=== PATIENT | male | born 2000 | race Caucasian/White ===

== ENCOUNTER 2018-12-24 06:53 | Inpatient (IN) | payer MEDICAID, OTHER ==
[2018-12-24] VITALS (9 sets, daily range): BP systolic 115–128; BP diastolic 60–72; PULSE 11–126; RESP 20–27; Ht 121.9 cm; Wt 46.8 kg
[~2018-12-24] VITALS: Ht 121.9 cm; Wt 46.8 kg
[2018-12-24] MEDS ORDERED: SODIUM CHLORIDE 0.9% 500 ML BAG IV* STA (07:04)
[2018-12-24] MEDS ORDERED: ACETAMINOPHEN 325 MG SUPP PR STA (07:04)
[2018-12-24] MEDS ORDERED: BICS G-TUBE (08:51)
[2018-12-24] MEDS ORDERED: BACL10TA G-TUBE (08:51)
[2018-12-24] MEDS ORDERED: MULTI G-TUBE (08:51)
[2018-12-24] MEDS ORDERED: IPRA3AMP29 INHALATION ×2 (08:51)
[2018-12-24] MEDS ORDERED: ACET160O41 PO (08:51)
[2018-12-24] MEDS ORDERED: METO-448 G-TUBE (08:51)
[2018-12-24] MEDS ORDERED: MAGN400O19 PO (08:51)
[2018-12-24] MEDS ORDERED: OXYC5SOL G-TUBE (08:51)
[2018-12-24] MEDS ORDERED: SULF20OR7 G-TUBE (08:51)
[2018-12-24] MEDS ORDERED: CALC200T3 G-TUBE (08:51)
[2018-12-24] MEDS ORDERED: ONDA4TAB13 PO (08:51)
[2018-12-24] MEDS ORDERED: TOPI25CA2 G-TUBE (08:51)
[2018-12-24] MEDS ORDERED: LANT3I SC (08:54)
[2018-12-24] MEDS ORDERED: MONT10TA21 G-TUBE (08:54)
[2018-12-24] MEDS ORDERED: POLY17PO6 G-TUBE (08:54)
[2018-12-24] MEDS ORDERED: [UNRECOGNIZED DRUG - CODE] G-TUBE (08:54)
[2018-12-24] MEDS ORDERED: LEVE500S8 G-TUBE (08:54)
[2018-12-24] MEDS ORDERED: LEVA0.3112 INHALATION (08:56)
[2018-12-24] MEDS ORDERED: SIME40DR55 PO (08:56)
[2018-12-24] MEDS ORDERED: SPIR25TA G-TUBE (08:56)
[2018-12-24] MEDS ORDERED: FURO40SO4 G-TUBE (08:56)
[2018-12-24] MEDS ORDERED: METF-849 PO (08:56)
[2018-12-24] MEDS ORDERED: CEFEPIME 2GM/50 ML (PMX) 50 ML IVPB STA (09:13)
[2018-12-24] MEDS ORDERED: SODIUM CHLORIDE 0.9% 1L BAG IV* STA (09:13)
[2018-12-24] MEDS ORDERED: VANCOMYCIN 1 GM (PMX) 250 ML IVPB ONE (09:30)
--- NOTE | 2018-12-24 11:24 | ERD ---
ER Documentation Chief Complaint Chief Complaint PER EMS, TACHYCARDIA, VENT DEPENDENT HPI This is a vent dependence 18-year-old male who with a history of cerebral palsy who was sent from nursing care facility because of tachycardia. There is no other symptoms reported whatsoever. Patient is unable to talk as he is not responsive at baseline and on a ventilator ROS All systems reviewed and are negative except as per history of present illness. Medications Home Meds Reported Medications Metformin* (Glucophage*) 500 Mg Tab, 500 MG PO AC BREAKFAST, #60 TAB 12/24/18 Levalbuterol* (Xopenex*) 0.31 Mg/3 Ml Nebu, 0.31 MG INHALATION Q6H for WHEEZING AND SOB, EA 12/24/18 Simethicone* (Simethicone* Drop) 40 Mg/0.6 Ml Drops.susp, 80 MG PO TID PRN for DISTENSION/GAS/BLOATING, EACH 12/24/18 Furosemide* (Lasix* Liq) 40 Mg/4 Ml Solution, 15 MG G-TUBE BID, #30 ML 12/24/18 Spironolactone* (Aldactone*) 25 Mg Tablet, 25 MG G-TUBE BID, #60 TAB 12/24/18 Polyethylene Glycol* (Miralax*) 17 Gm Powd.pack, 8.5 GM G-TUBE DAILY, #30 PACKET 12/24/18 Insulin Glargine* (Lantus*) 100 Unit/Ml Soln, 20 UNIT SC DAILY, #1 VIAL 12/24/18 Levetiracetam* (Keppra*) 500 Mg/5 Ml Solution, 750 MG G-TUBE BID, BOTTLE 12/24/18 Erythromycin Ethylsuccinate (E.E.S. 200) 200 Mg/5 Ml Susp.recon, 135 MG G-TUBE Q6, #1 BOTTLE 12/24/18 Montelukast Sodium* (Singulair*) 10 Mg Tablet, 10 MG G-TUBE QHS, #30 TAB 12/24/18 Sulfamethoxazole/Trimethoprim (Sulfatrim 800-160 mg/20 ml Renate) 800-160 mg/20 mL Susp, 5 ML G-TUBE BID, #1 BOTTLE 12/24/18 Acetaminophen* (Acetaminophen* Susp) 160 Mg/5 Ml Oral.susp, 640 MG PO Q4H PRN for PAIN OR TEMP ABOVE 38C, ML 12/24/18 Baclofen* (Baclofen*) 10 Mg Tablet, 10 MG G-TUBE Q8 PRN for MUSCLE SPASMS, TAB 12/24/18 Citric Acid/Sodium Citrate* (Bicitra* (PEDIATRIC)) 1 Meq/Ml Soln, 30 MEQ G-TUBE DAILY for 30 Days, BOTTLE 12/24/18 Oxycodone Hcl* (Oxycodone Hcl* Liq) 5 Mg/5 Ml Solution, 2.5 MG G-TUBE TID, ML 12/24/18 Multivitamins* (Theragran*) 1 Tab Tab, 1 TAB G-TUBE DAILY, TAB 12/24/18 Calcium Carbonate (Tums) 200MG Calcium Chew, 250 MG G-TUBE BID, TAB.CHEW 12/24/18 Magnesium Hydroxide* (Milk Of Magnesia*) 400 Mg/5 Ml Oral.susp, 15 ML PO DAILY, ML 12/24/18 Topiramate* (Topiramate*) 25 Mg Cap.sprink, 50 MG G-TUBE BID, CAP 12/24/18 Metoprolol Tartrate* (Lopressor*) 25 Mg Tab, 25 MG G-TUBE BID, #60 TAB 12/24/18 Ondansetron Hcl* (Zofran*) 4 Mg Tab, 4 MG PO Q6H PRN for NAUSEA AND OR VOMITING, TAB 12/24/18 Ipratropium-Albuterol (Ipratropium-Albuterol) 0.5-3 Mg/3 Ml Ampul.neb, 3 ML INHALATION Q2H PRN for SHORTNESS OF BREATH, #30 VIAL 12/24/18 Ipratropium-Albuterol (Ipratropium-Albuterol) 0.5-3 Mg/3 Ml Ampul.neb, 3 ML INHALATION Q6, #30 VIAL 12/24/18 PMhx/Soc History of Surgery: Yes (TRACH) Hx Neurological Disorder: Yes (CEREBRAL PALSY) Hx Respiratory Disorders: Yes (RESP FAILURE) Hx Alcohol Use: No Hx Substance Use: No Hx Tobacco Use: No Smoking Status: Never smoker FmHx Family History: No coronary disease Physical Exam Vitals Vital Signs Date Temp Pulse Resp B/P (MAP) Pulse Ox O2 O2 Flow FiO2 Time Delivery Rate 12/24/18 137 20 147/98 100 [place] 09:27 (114) l Ventilato r 12/24/18 101.5 07:50 12/24/18 142 26 100 35 07:28 12/24/18 101.5 160 20 131/78 100 07:05 (95) Physical Exam Const: Well-developed, well-nourished, cerebral palsy appearance Head: Atraumatic, normocephalic Eyes: Normal Conjunctiva, PERRLA,normal sclera, no nystagmus ENT: Normal External Ears, Nose and Mouth, moist mucus membranes. Neck: Full range of motion, passive. No meningismus, no lymphadenopathy. Resp: Diffuse rhonchi and rales bilaterally Cardio: Tachycardia, no murmurs, S1 S2 present] Abd: Soft, non tender x 4, non distended. Normal bowel sounds, no guarding or rebound, no pulsitile abdominal masses or bruits Skin: No petechiae or rashes, no ecchymosis , no maculopapular rash Back: Normal inspection] Ext: No cyanosis, or edema, , small information consistent with cerebral palsy, neurovascularly intact x 4 Neur: [Awake and alert, sensation intact otherwise limited Psych: Unable to obtain Result Diagram: 12/24/1872912/24/18 0730 Results 24 hrs Laboratory Tests Test 12/24/18 07:25 12/24/18 07:30 12/24/18 08:00 12/24/18 09:01 Urine Color YELLOW Urine Clarity CLOUDY Urine pH 8.0 Urine Specific 1.027 [place] Urine Ketones NEGATIVE mg/dL Urine Nitrite NEGATIVE mg/dL Urine Bilirubin NEGATIVE mg/dL Urine NEGATIVE mg/dL Urobilinogen Urine Leukocyte TRACE Katie/ul Esterase Urine 111 /HPF Microscopic RBC Urine 93 /HPF Microscopic WBC Urine Calcium FEW /HPF Oxalate Crystals Urine Bacteria FEW /HPF Urine Mucus MODERATE /HPF Urine NEGATIVE mg/dL Hemoglobin Urine Glucose NEGATIVE mg/dL Urine Total 2+ mg/dl Protein White Blood 15.5 10^3/ul Count Red Blood Count 3.55 10^6/ul Hemoglobin 10.1 g/dl Hematocrit 33.4 % Mean 94.1 fl Corpuscular Volume Mean 28.5 pg Corpuscular Hemoglobin Mean 30.2 g/dl Corpuscular Hemoglobin Conc ent Red Cell 14.4 % Distribution Width Platelet Count 644 10^3/UL Mean Platelet 10.6 fl Volume Immature 0.800 % Granulocytes % Neutrophils % 70.5 % Lymphocytes % 14.7 % Monocytes % 6.5 % Eosinophils % 6.9 % Basophils % 0.6 % Nucleated Red 0.0 /100WBC Blood Cells % Immature 0.130 10^3/ul Granulocytes # Neutrophils # 10.9 10^3/ul Lymphocytes # 2.3 10^3/ul Monocytes # 1.0 10^3/ul Eosinophils # 1.1 10^3/ul Basophils # 0.1 10^3/ul Nucleated Red 0.0 10^3/ul Blood Cells # Sodium Level 148 mmol/L Potassium Level 4.6 mmol/L Chloride Level 105 mmol/L Carbon Dioxide 27 mmol/L Level Anion Gap 16 Blood Urea 18 mg/dl Nitrogen Creatinine 0.21 mg/dl Est Glomerular > 60 mL/min Filtrat Rate mL/min Glucose Level 173 mg/dl Lactic Acid 2.4 mmol/L 2.4 mmol/L Level Calcium Level 10.5 mg/dl Total Bilirubin 0.3 mg/dl Direct 0.00 mg/dl Bilirubin Indirect 0.3 mg/dl Bilirubin Aspartate Amino 84 IU/L Transf (AST/SGO T) Alanine 55 IU/L Aminotransferas e (ALT/SGPT) Alkaline 163 IU/L Phosphatase Total Protein 8.6 g/dl Albumin 4.6 g/dl Globulin 4.00 g/dl Albumin/Globuli 1.15 n Ratio Blood Gas Blood arterial Specimen Source Arterial Blood 12/24/2018 8:00: Date Drawn 18 AM Arterial Blood 7.391 pH (Temp corrected ) Arterial Blood 45.1 mmhg pCO2 (Temp correct) Arterial Blood 70.6 mmHG pO2 (Temp corrected ) Arterial Blood 26.7 mmol/L HCO3 Arterial Blood 1.4 mmol/L Base Excess Arterial Blood 93.6 mmHG Oxygen Saturati on Ron Test ACCEPTAB Arterial Blood Right Radial Gas Puncture Site Arterial 0.6 % Blood Carboxyhe moglobin Arterial Blood 0.3 % Methemoglobin Blood Gas A-a 126.5 mmHg O2 Differential Oxyhemoglobin 92.8 % Percent Blood Gas 37.0 C Temperature Blood Gas 26.0 Respiration Rate Blood Gas 26 Actual Respiration Rat e Blood Gas VENT - PC Modality FiO2 35.0 % Blood Gas Low 5.0 cmH2O PEEP Setting Blood Gas TM Notified Whom Blood Gas 12/24/2018 8:10: Notified Time 01 AM Current Medications Medications Dose Sig/Hamida Start Time Status Last (Trade) Ordered Route PRN Stop Time Admin Dose Reason Admin Sodium 1,000 ml ONCE STAT 12/24/18 DC 12/24/18 Chloride IV* 07:04 07:51 (NS) 12/24/18 07:07 325 mg ONCE STAT 12/24/18 DC 12/24/18 Acetaminophen NE 07:04 07:50 (Tylenol 12/24/18 07:07 Supp) Sodium 1,500 ml BOLUS OVER 2 12/24/18 DC 12/24/18 Chloride HOURS STAT 09:13 09:24 (NS) IV* 12/24/18 09:15 Cefepime HCl 50 ml @ ONCE STAT 12/24/18 DC 12/24/18 100 mls/hr IVPB 09:13 09:24 12/24/18 09:42 Vancomycin 250 ml @ ONCE ONCE 12/24/18 12/24/18 HCl 125 mls/hr IVPB 09:30 09:52 12/24/18 11:29 Lidocaine 5 ml ONCE ONCE 12/24/18 (Xylocaine SC 11:30 1% (Mpf)) 12/24/18 11:31 Procedures/MDM Ordering MD: ZAID HENRY DO Location: E/R Room/Bed: PROCEDURE: Single view chest. CLINICAL INDICATION: Fever TECHNIQUE: Single view of the chest was obtained COMPARISON: None FINDINGS: Tracheostomy tube is positioned at the midline thoracic inlet. Lung volumes are diminished. Mild bronchial wall cuffing throughout the right lung. Airspace consolidation in the left lung base with associated pleural effusion. There is associated hazy air space opacity in the left upper lung. Cardiac silhouette is enlarged. IMPRESSION: 1. Left basilar air space consolidation and probable pleural effusion compatible with aspiration or pneumonia. 2. Enlarged cardiac silhouette. Mild bronchial wall thickening consistent with trace edema or airways inflammation. RPTAT: [facility] Physician Jace Date Time Electronically viewed and signed by Physician Jace on 12/24/2018 07:50 xB/ CC: MARGARETH HENRYSummer Car DO [id number] EKG: Rate/Rhythm: Sinus tachycardia heart rate 151 QRS, ST, QT: NORMAL NE, QRS, QT] Impression: Sinus tachycardia Admit MDM: Patient's infectious symptoms have not stabilized and the patient is at risk of rapid decompensation. The patient will be admitted for careful hydration, antibiotic therapy, and infectious source control. Severe Sepsis criteria: Infectious source: Pneumonia, urine End organ damage indicated by: Elevated lactate Lactate > 2.0 mmol/L Hypotension (SBP < 90 or >40 mmHG drop or MAP < 65) Acute Resp Failure (sat < 92% w/o oxygen) Biologist Aide > 2.0 INR > 1.5 Plt < 100 Bili > 2 Sepsis Management: Time of recognition of severe sepsis: The first lactate was reported at 2.4, the lab called me and told me that the specimen was hemolyzed and I needed to order a repeat. Repeat lactic acid is 2.4 again. Time of sepsis is at the time this was reported/second lactate Within 3 hours of recognition: Blood cultures x 2 before broad-spectrum antibiotics: []Yes 30 ml/kg NS bolus []Completed Initial lactate 2.4 Repeat lactate pending Septic Shock Assessment: Any lactic acid > 4.0 []No Persistent hypotension (SBP < 90 or 40 mmHg drop, MAP < 65) despite 30 mL/kg IV fluid bolus []No Persistent Hypotension Treatment: Comfort care []No Hypotension caused by: pt. baseline, med-induced, erroneous value, condition other than infection []No Refusal by patient/decision maker for: blood draw, IVF, Antibiotics, Pressors []No Central line PICC line has been ordered, patient has 2 peripheral lines Vasopressor started []Norepinehrine I considered further perfusion assessment with CVP measurement, SCVO2, bedside ultrasound volume assessment, passive leg raise, trial of further fluid bolus and proceeded with []. Accepting Care Team Current data and ongoing care discussed. Time: [] Admitting Physician: Panel Glue Spreader(s): Outstanding Data: []None Critical Care Time: 35 minutes Treatments/Evaluations: Close monitoring and treatment of unstable vital signs, cardiorespiratory, and neurologic status, while maintaining tight balance of fluid, respiratory, and cardiac interventions. This includes the administration of emergency fluid management while maintaining close respiratory support as well as the provision of immediate and broad-spectrum antibiotic therapy, while performing a simultaneous assessment for possible sources in order to direct targeted therapy. This time includes discussing the case with the patient and t he patient's family. This time also includes the consideration for invasive and chemical support to prevent cardiopulmonary collapse. This time does not include all procedures stated elsewhere in this record. This time also includes reviewing old records, labs and radiological studies. This time includes examining and re-examining the patient. Additionally, this time also includes arranging care with admitting and consulting physicians. Departure Diagnosis: Primary Impression: Sepsis Sepsis type: sepsis due to unspecified organism Qualified Codes: A41.9 - Sepsis, unspecified organism Additional Impressions: Pneumonia Pneumonia type: due to unspecified organism Laterality: left Lung location: lower lobe of lung Qualified Codes: J18.1 - Lobar pneumonia, unspecified organism Urinary tract infection Urinary tract infection type: site unspecified Hematuria presence: without hematuria Qualified Codes: N39.0 - Urinary tract infection, site not specified Condition: Stable ZAID HENRY DO Dec 24, 2018 11:24
[2018-12-24] MEDS ORDERED: LIDOCAINE 1% (MPF) 5 ML VIAL SC ONE (11:30)
[2018-12-24] MEDS ORDERED: SOD CHLORIDE 0.9% 1,000 ML IV SCH (11:32)
[2018-12-24] MEDS ORDERED: ACETAMINOPHEN 325 MG TAB PO PRN (12:00)
[2018-12-24] MEDS ORDERED: ONDANSETRON 4 MG INJ IV PRN ×2 (12:00→14:30)
[2018-12-24] MEDS ORDERED: NACL 0.9% 3 ML SYG IV SCH (14:30)
[2018-12-24] MEDS ORDERED: VANCOMYCIN IV PER PHARMACY XX SCH (15:00)
--- NOTE | 2018-12-24 15:03 | HP ---
Date/Time of Note Date/Time of Note DATE: 12/24/18 TIME: 14:50 Assessment/Plan VTE Prophylaxis Pharmacological prophylaxis: heparin Lines/Catheters IV Catheter Type (from Nrs): Saline Lock Assessment/Plan Assessment/Plan 18 yo man with cerebral palsy, chronic trach and PEG coming in with fevers and tachycardia. #Sepsis - Fever to 101.5, tachy to 160s, WBC 15.5 - Of note, patient appears to have been on amoxicillin, gentamycin, and erythromycin prior to admission. - Per CXR this may be vent-associated pneumonia - Will f/u sputum and blood cultures - Empiric vanco and cefepime #Respiratory failure - Appears to be chronic, possible from complications of cerebral palsy - Pulmonary consult to manage vent. - Resume PEG tube feeds. Dispo: May warrant discussion of code status again, POLST is from 2009. DVT: heparin Result Diagram: 12/24/18 0730 12/24/18 0730 HPI/ROS Admit Date/Time Admit Date/Time 24 December 2018 Hx of Present Illness Damian Govea is a 18 man with cerebral palsy, chronic PEG and trach on vent admitted for fever and tachycardia. History is per charting and transfer documentation; patient is nonverbal. Apparently rescue ambulance was called from [facility] due to tachycardia. He was brought to the [facility] ED. Per documentation, he's been on erythromycin, amoxicillin, and gentamycin at the time of transfer. There is also a POLST in the chart from 2009 signed by his father Damian Govea Sr ([phone]) keeping the patient full code. In the ED he was febrile to 101.5, tachy to 160s, BP 131/78, breathing comfortably on vent at 35% FiO2. CXR showed possible L basilar consolidation with possible effusion. ROS Subjective hx not possible: pt non-verbal PMH/Family/Social Past Medical History Cerebral palsy Medications Current Medications Sodium Chloride 1,000 ml @ 80 mls/hr [id number] IV ; Start 12/24/18 at 11:32; Stop 12/25/18 at 00:01 Ondansetron HCl (Zofran Inj) 4 mg ER BRIDGE PRN IV NAUSEA/VOMITING; Start 12/24/18 at 12:00; Stop 12/25/18 at 11:59 Acetaminophen (Tylenol Tab) 650 mg ER BRIDGE PRN PO .MILD PAIN 1-3 OR TEMP; Start 12/24/18 at 12:00; Stop 12/25/18 at 11:59 IV Flush (NS 3 ml) 3 ml PER PROTOCOL IV ; Start 12/24/18 at 14:30; Status UNV Ondansetron HCl (Zofran Inj) 4 mg Q6H PRN IV NAUSEA/VOMITING; Start 12/24/18 at 14:30; Status UNV Heparin Sodium (Porcine) (Heparin (5000 Units/1ml)) 5,000 unit Q12 SC ; Start 12/24/18 at 21:00; Status UNV Cefepime HCl 50 ml @ 100 mls/hr Q12 IVPB ; Start 12/24/18 at 21:00; Status UNV Vancomycin HCl (Vanco Iv Per Pharmacy) VANCOMYCIN PER PHARMACY PER PROTOCOL XX ; Start 12/24/18 at 15:00; Status UNV Coded Allergies: budesonide (Verified Allergy, Unknown, 12/24/18) [facility] transfer sheet list allergies tobramycin (Verified Allergy, Unknown, 12/24/18) transfer list from [facility] pt has allergy to med Past Surgical History Trach PEG Social History Smoking Status: Never smoker Exam/Review of Systems Vital Signs Vitals Vital Signs Date Temp Pulse Resp B/P (MAP) Pulse Ox O2 O2 Flow FiO2 Time Delivery Rate 12/24/18 98.2 130 27 133/88 100 Mechanical 13:21 (103) Ventilator 12/24/18 35 11:15 Exam Exam Gen: Dysmorphic man lying on gurney, trached on vent. Eyes: Open spontaneously, eye movements without tracking. Pupils nonreactive. Dysconjugate gaze. No icterus. Head: Large and spherical, atraumatic HEENT: ET tube in place, crusted exudate on lips. Neck: No lymphadenopathy, supple. Card: Distant heart sounds, tachy, no murmurs appreciated Chest: Wide, barrel-shaped. Pulm: Mechanical breath sounds throughout. Abd: G tube in place, clean and intact. Well healed exp lap scar. Soft, nondistended. Ext: Arms and legs atrophic. No edema. Skin: warm, dry, well perfused. KIAN BARBOZA MD Dec 24, 2018 15:02
[2018-12-24] MEDS ORDERED: LEVALBUTEROL (NEB) 0.31 MG/3 ML AMP NEB PRN (15:30)
[2018-12-24] MEDS ORDERED: ACETAMINOPHEN 160 MG/5ML CUP PO PRN (15:30)
[2018-12-24] MEDS ORDERED: BACLOFEN 10 MG TAB GTB PRN (15:30)
[2018-12-24] MEDS ORDERED: GLUCAGON 1 MG INJ IM PRN (16:00)
[2018-12-24] MEDS ORDERED: GLUCOSE GEL 15 GRAM TUBE PO PRN ×2 (16:00)
[2018-12-24] MEDS ORDERED: DEXTROSE 50% 50 ML SYRINGE IV PRN ×2 (16:00)
[2018-12-24] MEDS ORDERED: GLUCOSE GEL 15 GRAM TUBE BUCCAL PRN (16:00)
[2018-12-24] MEDS ORDERED: GENTAMICIN IV PER PHARMACY XX SCH (17:00)
[2018-12-24] MEDS: INSULIN ASPART [NOVOLOG] 3 ML PEN SC SCH ×2 (18:00→20:27)
[2018-12-24] MEDS: VANCOMYCIN 750 MG (PMX) 250 ML IVPB SCH (18:52)
[2018-12-24] MEDS: SPIRONOLACTONE 25 MG TAB GTB SCH (19:39)
[2018-12-24] MEDS: MONTELUKAST 10 MG TAB GTB SCH (20:03)
[2018-12-24] MEDS: LEVETIRACETAM (100 MG/ML) 5ML CUP GTB SCH (20:03)
[2018-12-24] MEDS: METOPROLOL 25 MG TAB GTB SCH (20:03)
[2018-12-24] MEDS: TOPIRAMATE SPRINKLE 25 MG CAP GTB SCH (20:03)
[2018-12-24] MEDS: HEPARIN 5,000 UNIT/1 ML VIAL SC SCH (20:25)
[2018-12-24] MEDS: GENTAMICIN 80 MG/NS (PMX) 50 ML IVPB SCH (20:27)
[2018-12-24] MEDS ORDERED: TRIMETHOPRIM/SULFAMETHOX (PO SYG) GTB SCH (21:00)
[2018-12-24] MEDS ORDERED: CEFEPIME 1GM/50 ML (PMX) 50 ML IVPB SCH (21:00)
[2018-12-25] VITALS (22 sets, daily range): BP systolic 102–117; BP diastolic 56–73; PULSE 86–122; RESP 20–26
[2018-12-25] MEDS: ACCU-CHEK XX SCH (01:01)
[2018-12-25] MEDS: VANCOMYCIN 750 MG (PMX) 250 ML IVPB SCH ×3 (01:11→17:20)
[2018-12-25] MEDS: SPIRONOLACTONE 25 MG TAB GTB SCH ×2 (05:09→17:07)
[2018-12-25] MEDS: GENTAMICIN 80 MG/NS (PMX) 50 ML IVPB SCH ×2 (05:14→18:00)
[2018-12-25] MEDS: INSULIN ASPART [NOVOLOG] 3 ML PEN SC SCH ×4 (08:00→21:00)
[2018-12-25] MEDS: MAGNESIUM HYDROXIDE 30ML CUP PO SCH (09:00)
[2018-12-25] MEDS: METOPROLOL 25 MG TAB GTB SCH ×2 (09:00→21:20)
[2018-12-25] MEDS: CITRIC ACID/SODIUM CITRATE 15 ML CUP GTB SCH (09:00)
[2018-12-25] MEDS: LEVETIRACETAM (100 MG/ML) 5ML CUP GTB SCH ×2 (09:00→21:19)
[2018-12-25] MEDS: POLYETHYLENE GLYCOL 17 GM PACKET GTB SCH (09:00)
[2018-12-25] MEDS: TOPIRAMATE SPRINKLE 25 MG CAP GTB SCH ×2 (09:00→21:19)
[2018-12-25] MEDS ORDERED: CITRIC ACID/NA CIT (1 MEQ/ML POSYG) GTB SCH (09:00)
[2018-12-25] MEDS ORDERED: INFLUENZA VIRUS VACCINE 0.5 ML (DISPENSING) IM* ONE (09:00)
[2018-12-25] MEDS: SOD CHLORIDE 0.45% 1,000 ML IV SCH (09:53)
[2018-12-25] MEDS: INSULIN GLARGINE [LANTus] (100 UNITS/ML) SYG SC SCH (09:59)
[2018-12-25] MEDS: HEPARIN 5,000 UNIT/1 ML VIAL SC SCH ×2 (10:00→21:24)
--- NOTE | 2018-12-25 16:46 | CONS ---
Assessment/Plan Assessment/Plan Assessment/Plan (Daily) IMP: 1. Sepsis--2/2 UTI +/- HCAP. 2. Vent Dependent Resp Failure 3. Cerebral Palsy RECS: 1. IVFs 2. Hadley-culture--follow up and de-escalate abx 3. Broad spectrum abx 4. Vent support 5. Am labs/CXR/ABG Consultation Date/Type/Reason Admit Date/Time 24 December 2018 Date of Consultation: Dec 25, 2018 Type of Consult Pulm Date/Time of Note DATE: 12/25/18 TIME: 16:40 Hx of Present Illness Briefly, this is a 18-year-old man with cerebral palsy, chronic PEG, and trach on vent, admitted from SNF with fevers and tachycardia. Subjective hx not possible: pt non-verbal Past Medical History as per [facility] Home Meds Reported Medications Metformin* (Glucophage*) 500 Mg Tab, 500 MG PO AC BREAKFAST, #60 TAB 12/24/18 Levalbuterol* (Xopenex*) 0.31 Mg/3 Ml Nebu, 0.31 MG INHALATION Q6H for WHEEZING AND SOB, EA 12/24/18 Simethicone* (Simethicone* Drop) 40 Mg/0.6 Ml Drops.susp, 80 MG PO TID PRN for DISTENSION/GAS/BLOATING, EACH 12/24/18 Furosemide* (Lasix* Liq) 40 Mg/4 Ml Solution, 15 MG G-TUBE BID, #30 ML 12/24/18 Spironolactone* (Aldactone*) 25 Mg Tablet, 25 MG G-TUBE BID, #60 TAB 12/24/18 Polyethylene Glycol* (Miralax*) 17 Gm Powd.pack, 8.5 GM G-TUBE DAILY, #30 PACKET 12/24/18 Insulin Glargine* (Lantus*) 100 Unit/Ml Soln, 20 UNIT SC DAILY, #1 VIAL 12/24/18 Levetiracetam* (Keppra*) 500 Mg/5 Ml Solution, 750 MG G-TUBE BID, BOTTLE 12/24/18 Erythromycin Ethylsuccinate (E.E.S. 200) 200 Mg/5 Ml Susp.recon, 135 MG G-TUBE Q6, #1 BOTTLE 12/24/18 Montelukast Sodium* (Singulair*) 10 Mg Tablet, 10 MG G-TUBE QHS, #30 TAB 12/24/18 Sulfamethoxazole/Trimethoprim (Sulfatrim 800-160 mg/20 ml Renate) 800-160 mg/20 mL Susp, 5 ML G-TUBE BID, #1 BOTTLE 12/24/18 Acetaminophen* (Acetaminophen* Susp) 160 Mg/5 Ml Oral.susp, 640 MG PO Q4H PRN for PAIN OR TEMP ABOVE 38C, ML 12/24/18 Baclofen* (Baclofen*) 10 Mg Tablet, 10 MG G-TUBE Q8 PRN for MUSCLE SPASMS, TAB 12/24/18 Citric Acid/Sodium Citrate* (Bicitra* (PEDIATRIC)) 1 Meq/Ml Soln, 30 MEQ G-TUBE DAILY for 30 Days, BOTTLE 12/24/18 Oxycodone Hcl* (Oxycodone Hcl* Liq) 5 Mg/5 Ml Solution, 2.5 MG G-TUBE TID, ML 12/24/18 Multivitamins* (Theragran*) 1 Tab Tab, 1 TAB G-TUBE DAILY, TAB 12/24/18 Calcium Carbonate (Tums) 200MG Calcium Chew, 250 MG G-TUBE BID, TAB.CHEW 12/24/18 Magnesium Hydroxide* (Milk Of Magnesia*) 400 Mg/5 Ml Oral.susp, 15 ML PO DAILY, ML 12/24/18 Topiramate* (Topiramate*) 25 Mg Cap.sprink, 50 MG G-TUBE BID, CAP 12/24/18 Metoprolol Tartrate* (Lopressor*) 25 Mg Tab, 25 MG G-TUBE BID, #60 TAB 12/24/18 Ondansetron Hcl* (Zofran*) 4 Mg Tab, 4 MG PO Q6H PRN for NAUSEA AND OR VOMITING, TAB 12/24/18 Ipratropium-Albuterol (Ipratropium-Albuterol) 0.5-3 Mg/3 Ml Ampul.neb, 3 ML INHALATION Q2H PRN for SHORTNESS OF BREATH, #30 VIAL 12/24/18 Ipratropium-Albuterol (Ipratropium-Albuterol) 0.5-3 Mg/3 Ml Ampul.neb, 3 ML INHALATION Q6, #30 VIAL 12/24/18 Medications Current Medications IV Flush (NS 3 ml) 3 ml PER PROTOCOL IV ; Start 3/22/19 at 14:30 Ondansetron HCl (Zofran Inj) 4 mg Q6H PRN IV NAUSEA/VOMITING; Start 12/24/18 at 14:30 Heparin Sodium (Porcine) (Heparin (5000 Units/1ml)) 5,000 unit Q12 SC Last administered on 12/25/18at 10:00; Admin Dose 5,000 UNIT; Start 12/24/18 at 21:00 Vancomycin HCl (Vanco Iv Per Pharmacy) VANCOMYCIN PER PHARMACY PER PROTOCOL XX ; Start 12/24/18 at 15:00 Acetaminophen (Tylenol Liquid (Ped)) 640 mg Q4H PRN PO MILD PAIN(1-3) OR TEMP>38C; Start 12/24/18 at 15:30 Baclofen (Lioresal) 10 mg Q8H PRN GTB MUSCLE SPASMS; Start 12/24/18 at 15:30 Insulin Glargine (Lantus) 20 units DAILY SC Last administered on 12/25/18at 09:59; Admin Dose 20 UNITS; Start 12/25/18 at 09:00 Levalbuterol (Xopenex Neb) 0.31 mg Q6H RESP THERAPY PRN NEB wheezing; Start 12/24/18 at 15:30 Levetiracetam (Keppra Liquid) 750 mg BID GTB ; Start 12/24/18 at 21:00 Magnesium Hydroxide (Milk Of Mag) 15 ml DAILY PO ; Start 12/25/18 at 09:00 Metoprolol Tartrate (Lopressor) 25 mg BID GTB ; Start 12/24/18 at 21:00 Montelukast Sodium (Singulair) 10 mg QHS GTB ; Start 12/24/18 at 21:00 Polyethylene Glycol (Miralax) 8.5 gm DAILY GTB ; Start 12/25/18 at 09:00 Simethicone (Mylicon Oral Drop) 80 mg TID PRN PO DISTENSION/GAS/BLOATING; Start 12/24/18 at 15:30 Spironolactone (Aldactone) 25 mg BID DIURETICS GTB ; Start 12/24/18 at 18:00 Topiramate (Topamax Sprinkle) 50 mg BID GTB ; Start 12/24/18 at 21:00 Diagnostic Test (Pha) (Accu-Chek) XX ; Start 12/25/18 at 02:00 Insulin Aspart (Novolog Insulin Pen) NOVOLOG *MODERATE* ALGORITHM WITH MEALS BEDTIME SC ; Start 12/24/18 at 18:00 Miscellaneous Information 1 ea NOTE XX ; Start 12/24/18 at 16:00 Glucose (Glutose) 15 gm Q15M PRN PO DECREASED GLUCOSE; Start 12/24/18 at 16:00 Glucose (Glutose) 22.5 gm Q15M PRN PO DECREASED GLUCOSE; Start 12/24/18 at 16:00 Dextrose (D50w Syringe) 25 ml Q15M PRN IV DECREASED GLUCOSE; Start 12/24/18 at 16:00 Dextrose (D50w Syringe) 50 ml Q15M PRN IV DECREASED GLUCOSE; Start 12/24/18 at 16:00 Glucagon (Glucagen) 1 mg Q15M PRN IM DECREASED GLUCOSE; Start 12/24/18 at 16:00 Glucose (Glutose) 15 gm Q15M PRN BUCCAL DECREASED GLUCOSE; Start 12/24/18 at 16:00 Gentamicin Sulfate 50 ml @ 100 mls/hr Q12H IVPB Last administered on 12/25/18at 05:14; Admin Dose 100 MLS/HR; Start 12/24/18 at 18:00 Gentamicin Sulfate (Gentamicin Iv Per Pharmacy) PER PHARMACY DOSING NOTE XX ; Start 12/24/18 at 17:00 Vancomycin/Sodium Chloride 250 ml @ 125 mls/hr Q8H IVPB Last administered on 12/25/18at 11:00; Admin Dose 125 MLS/HR; Start 12/24/18 at 18:00 Citric Acid/ Sodium Citrate (Bicitra) 30 ml DAILY GTB ; Start 12/25/18 at 09:00 Sodium Chloride 1,000 ml @ 75 mls/hr [id number] IV Last administered on 12/25/18at 09:53; Admin Dose 75 MLS/HR; Start 12/25/18 at 09:00 Miscellaneous Information (*Rx Drug Level Order Reminder*) GENT TROUGH @ 1,700 ONCE ONCE XX ; Start 12/25/18 at 17:00; Stop 12/25/18 at 17:01 Miscellaneous Information (*Rx Drug Level Order Reminder*) GENT PEAK @ 1,900 ONCE ONCE XX ; Start 12/25/18 at 19:00; Stop 12/25/18 at 19:01 Allergies: Coded Allergies: budesonide (Verified Allergy, Unknown, 12/24/18) [facility] [place] transfer sheet list allergies tobramycin (Verified Allergy, Unknown, 12/24/18) transfer list from [facility] [place] pt has allergy to med Past Surgical History Trach and PEG Family History Significant Family History: no pertinent family hx Social History Alcohol Use: none Smoking Status: Never smoker Drug Use: none Exam/Review of Systems Exam Vitals Vital Signs Date Temp Pulse Resp B/P (MAP) Pulse Ox O2 O2 Flow FiO2 Time Delivery Rate 12/25/18 93 16:09 12/25/18 98.5 20 117/59 100 Mechanical 16:03 (78) Ventilator 12/25/18 30 15:21 Intake and Output 12/24/18 12/24/18 12/25/18 1515:00 23:00 07:00 IntakeIntake Total 250 ml 300 ml OutputOutput Total 450 ml BalanceBalance 250 ml -150 ml Constitutional: alert, non-verbal Head: normocephalic, atraumatic Eyes: nl conjunctiva, nl lids, nl sclera ENMT: nl external ears & nose, nl lips & teeth, nl nasal mucosa & septum Neck: supple, non-tender, other (trach site clean ) Respiratory: crackles/rales, labored breathing Cardiovascular: nl pulses Gastrointestinal: soft, nl liver, spleen, non-tender Extremities: normal pulses 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 Results Result Diagram: 12/25/18 0744 12/25/18 0551 Results 24hrs Laboratory Tests Test 12/24/18 18:49 12/24/18 20:17 12/25/18 05:51 12/25/18 07:00 Bedside Glucose 101 117 Sodium Level 148 H Potassium Level 3.8 Chloride Level 112 H Carbon Dioxide 23 Level Anion Gap 13 Blood Urea 10 Nitrogen Creatinine 0.17 L Est Glomerular > 60 Filtrat Rate mL/min Glucose Level 120 # Calcium Level 9.2 Phosphorus Level 3.4 Magnesium Level 1.9 Total Bilirubin 0.2 Direct Bilirubin 0.00 Indirect 0.2 Bilirubin Aspartate Amino 78 H Transf (AST/SGOT) Alanine 43 Aminotransferase (ALT/SGPT) Alkaline 99 Phosphatase Total Protein 6.5 # Albumin 3.6 # Globulin 2.90 Albumin/Globulin 1.24 Ratio Thyroid 1.160 Stimulating Hormone (TSH) Blood Gas Blood arterial Specimen Source Arterial Blood 12/25/2018 8:18:5 Date Drawn 8 AM Arterial Blood pH 7.403 (Temp corrected) Arterial Blood 42.9 pCO2 (Temp correct) Arterial Blood 122.1 H pO2 (Temp corrected) Arterial Blood 26.2 H HCO3 Arterial Blood 1.3 Base Excess Arterial Blood 98.1 H Oxygen Saturation Ron Test ACCEPTAB Arterial Blood Right Radial Gas Puncture Site Arterial 0.3 Blood Carboxyhemo globin Arterial Blood 0.6 Methemoglobin Blood Gas A-a O2 41.4 H Differential Oxyhemoglobin 97.2 Percent Blood Gas 37.0 Temperature Blood Gas 26.0 Respiration Rate Blood Gas Actual 26 Respiration Rate Blood Gas VENT - AC Modality FiO2 30.0 Blood Gas 0.80 Inspiratory Time Blood Gas Low 5.0 PEEP Setting Blood Gas 31.0 Inspiratory Pressure Blood Gas DT Notified Whom Blood Gas 12/25/2018 8:38:3 Notified Time 9 AM Test 12/25/18 07:44 12/25/18 08:00 12/25/18 09:21 12/25/18 12:16 White Blood Count 10.5 # Red Blood Count 2.87 L Hemoglobin 8.5 L Hematocrit 27.4 L Mean Corpuscular 95.5 Volume Mean Corpuscular 29.6 Hemoglobin Mean Corpuscular 31.0 L Hemoglobin Concen t Red Cell 14.6 H Distribution Width Platelet Count 523 H Mean Platelet 11.8 H Volume Immature 1.000 H Granulocytes % Neutrophils % Segmented 52 Neutrophils % (Manual) Band Neutrophils 1 % (Manual) Lymphocytes % Lymphocytes % 28 (Manual) Reactive 1 H Lymphocytes % (Manual) Monocytes % Monocytes % 5 (Manual) Eosinophils % Eosinophils % 13 H (Manual) Basophils % Nucleated Red 0.0 Blood Cells % Immature 0.110 H Granulocytes # Neutrophils # Neutrophils # 5.5 (Manual) Band Neutrophils 0.1 # Lymphocytes 2.9 (Manual) Lymphocytes # Reactive 0.1 H Lymphocytes # Monocytes # Monocytes # 0.5 (Manual) Eosinophils # Basophils # Nucleated Red Blood Cells # Platelet Estimate INCREASED Polychromasia 3+ Anisocytosis 2+ Hemoglobin A1c 5.3 Bedside Glucose 122 100 Vancomycin Level 13.6 Trough Medications Medication Current Medications IV Flush (NS 3 ml) 3 ml PER PROTOCOL IV ; Start 12/24/18 at 14:30 Ondansetron HCl (Zofran Inj) 4 mg Q6H PRN IV NAUSEA/VOMITING; Start 12/24/18 at 14:30 Heparin Sodium (Porcine) (Heparin (5000 Units/1ml)) 5,000 unit Q12 SC Last administered on 12/25/18at 10:00; Admin Dose 5,000 UNIT; Start 12/24/18 at 21:00 Vancomycin HCl (Vanco Iv Per Pharmacy) VANCOMYCIN PER PHARMACY PER PROTOCOL XX ; Start 12/24/18 at 15:00 Acetaminophen (Tylenol Liquid (Ped)) 640 mg Q4H PRN PO MILD PAIN(1-3) OR TEMP>38C; Start 12/24/18 at 15:30 Baclofen (Lioresal) 10 mg Q8H PRN GTB MUSCLE SPASMS; Start 12/24/18 at 15:30 Insulin Glargine (Lantus) 20 units DAILY SC Last administered on 12/25/18at 09:59; Admin Dose 20 UNITS; Start 12/25/18 at 09:00 Levalbuterol (Xopenex Neb) 0.31 mg Q6H RESP THERAPY PRN NEB wheezing; Start at 15:30 Levetiracetam (Keppra Liquid) 750 mg BID GTB ; Start 12/24/18 at 21:00 Magnesium Hydroxide (Milk Of Mag) 15 ml DAILY PO ; Start 12/25/18 at 09:00 Metoprolol Tartrate (Lopressor) 25 mg BID GTB ; Start 12/24/18 at 21:00 Montelukast Sodium (Singulair) 10 mg QHS GTB ; Start 12/24/18 at 21:00 Polyethylene Glycol (Miralax) 8.5 gm DAILY GTB ; Start 12/25/18 at 09:00 Simethicone (Mylicon Oral Drop) 80 mg TID PRN PO DISTENSION/GAS/BLOATING; Start 12/24/18 at 15:30 Spironolactone (Aldactone) 25 mg BID DIURETICS GTB ; Start 12/24/18 at 18:00 Topiramate (Topamax Sprinkle) 50 mg BID GTB ; Start 12/24/18 at 21:00 Diagnostic Test (Pha) (Accu-Chek) 1 XX ; Start 12/25/18 at 02:00 Insulin Aspart (Novolog Insulin Pen) NOVOLOG *MODERATE* ALGORITHM WITH MEALS BEDTIME SC ; Start 12/24/18 at 18:00 Miscellaneous Information 1 ea NOTE XX ; Start 12/24/18 at 16:00 Glucose (Glutose) 15 gm Q15M PRN PO DECREASED GLUCOSE; Start 12/24/18 at 16:00 Glucose (Glutose) 22.5 gm Q15M PRN PO DECREASED GLUCOSE; Start 12/24/18 at 16:00 Dextrose (D50w Syringe) 25 ml Q15M PRN IV DECREASED GLUCOSE; Start 12/24/18 at 16:00 Dextrose (D50w Syringe) 50 ml Q15M PRN IV DECREASED GLUCOSE; Start 12/24/18 at 16:00 Glucagon (Glucagen) 1 mg Q15M PRN IM DECREASED GLUCOSE; Start 12/24/18 at 16:00 Glucose (Glutose) 15 gm Q15M PRN BUCCAL DECREASED GLUCOSE; Start 12/24/18 at 16:00 Gentamicin Sulfate 50 ml @ 100 mls/hr Q12H IVPB Last administered on 12/25/18at 05:14; Admin Dose 100 MLS/HR; Start 12/24/18 at 18:00 Gentamicin Sulfate (Gentamicin Iv Per Pharmacy) PER PHARMACY DOSING NOTE XX ; Start 12/24/18 at 17:00 Vancomycin/Sodium Chloride 250 ml @ 125 mls/hr Q8H IVPB Last administered on 12/25/18at 11:00; Admin Dose 125 MLS/HR; Start 12/24/18 at 18:00 Citric Acid/ Sodium Citrate (Bicitra) 30 ml DAILY GTB ; Start 12/25/18 at 09:00 Sodium Chloride 1,000 ml @ 75 mls/hr [id number] IV Last administered on 12/25/18at 09:53; Admin Dose 75 MLS/HR; Start 12/25/18 at 09:00 Miscellaneous Information (*Rx Drug Level Order Reminder*) GENT TROUGH @ 1,700 ONCE ONCE XX ; Start 12/25/18 at 17:00; Stop 12/25/18 at 17:01 Miscellaneous Information (*Rx Drug Level Order Reminder*) GENT PEAK @ 1,900 ONCE ONCE XX ; Start 12/25/18 at 19:00; Stop 12/25/18 at 19:01 RAHEL WIN MD Dec 25, 2018 16:46
[2018-12-25] MEDS ORDERED: ACETAMINOPHEN 650MG/20.3ML CUP PO PRN (17:30)
[2018-12-25] MEDS: MONTELUKAST 10 MG TAB GTB SCH (21:19)
--- NOTE | 2018-12-25 23:57 | CONS ---
Assessment/Plan Assessment/Plan Hospital Course (Demo Recall) - severe sepsis on admission due to UTI and ventilator associated pneumonia - UTI due to Gram negative gurinder - h/o UTI due to E. faecalise at [facility]; was on amoxicillin pPEG (12/20/2018- 12/23/2018) - ventilator associated pneumonia of L base due to Gram negative gurinder - h/o VAP due to acinetobacter vs. colonization of the resp tract by acinetobacter; has been on IV gentamicin, started at [facility] originally (12/22/2018- ) - VDRF - h/o tracheostomy - dysphagia - PEG dependent status - cerebral palsy - epilepsy - DTI of R heel (present at admission) - atrophy of limbs - h/o repair of cleft lip and palate recommendations - pending results: Gram negative rods in cultures of urine and tracheal aspirate, blood culture - continue IV vancomycin (12/24/2018-) and gentamicin (12/22/2018-); will adjust his antibiotics according to the culture results - management d/w Pt's RN [place] Consultation Date/Type/Reason Admit Date/Time 24 December 2018 Date of Consultation: Dec 25, 2018 Type of Consult ID Reason for Consultation severe sepsis Requesting Provider: KIAN BARBOZA MD Date/Time of Note DATE: 12/25/18 TIME: 23:57 Hx of Present Illness This is a 18 yo male with cerebral palsy, who is dependent on the ventilator and tube feed via PEG. He usually resides in an LTAC. His PMHx is significant for ventilator-associated pneumonia and epilepsy. Pt was transferred to ER at [facility] on 12/24/2018 due to tachycardia and fever. According to the notes at [facility], Pt was started on amoxicillin per PEG due to UTI caused by E. faecalis on 12/20/2018 and was started on IV gentamicin due to "acinetobacter in sputum." Upon arrival at ER. Pt was tachycardic, tachypenic and febrile at 101.5. His initial workup was significant for WBC 15.5, lactic acid 2.4, pyuria on urinalysis and CXR showing air space disease/infiltrate at L base. Pt was started on empiric IV vancomycin and continued on IV gentamicin. Today, Pt was afebrile in the afternoon. WBC level improved to 10.5. cultures of his urine and tracheal aspirate are growing Gram negative rods. Pt is non-verbal at baseline and cannot provide his subjective history. Dr. Barboza requested ID consultation on this Pt. Subjective hx not possible: pt non-verbal Past Medical History Medical History: other (cerebral palsy, epilepsy, anemia, VDRF, tube feed, VAP, atrophy of limbs) Home Meds Reported Medications Metformin* (Glucophage*) 500 Mg Tab, 500 MG PO AC BREAKFAST, #60 TAB 12/24/18 Levalbuterol* (Xopenex*) 0.31 Mg/3 Ml Nebu, 0.31 MG INHALATION Q6H for WHEEZING AND SOB, EA 12/24/18 Simethicone* (Simethicone* Drop) 40 Mg/0.6 Ml Drops.susp, 80 MG PO TID PRN for DISTENSION/GAS/BLOATING, EACH 12/24/18 Furosemide* (Lasix* Liq) 40 Mg/4 Ml Solution, 15 MG G-TUBE BID, #30 ML 12/24/18 Spironolactone* (Aldactone*) 25 Mg Tablet, 25 MG G-TUBE BID, #60 TAB 12/24/18 Polyethylene Glycol* (Miralax*) 17 Gm Powd.pack, 8.5 GM G-TUBE DAILY, #30 PACKET 12/24/18 Insulin Glargine* (Lantus*) 100 Unit/Ml Soln, 20 UNIT SC DAILY, #1 VIAL 12/24/18 Levetiracetam* (Keppra*) 500 Mg/5 Ml Solution, 750 MG G-TUBE BID, BOTTLE 12/24/18 Erythromycin Ethylsuccinate (E.E.S. 200) 200 Mg/5 Ml Susp.recon, 135 MG G-TUBE Q6, #1 BOTTLE 12/24/18 Montelukast Sodium* (Singulair*) 10 Mg Tablet, 10 MG G-TUBE QHS, #30 TAB 12/24/18 Sulfamethoxazole/Trimethoprim (Sulfatrim 800-160 mg/20 ml Renate) 800-160 mg/20 mL Susp, 5 ML G-TUBE BID, #1 BOTTLE 12/24/18 Acetaminophen* (Acetaminophen* Susp) 160 Mg/5 Ml Oral.susp, 640 MG PO Q4H PRN for PAIN OR TEMP ABOVE 38C, ML 12/24/18 Baclofen* (Baclofen*) 10 Mg Tablet, 10 MG G-TUBE Q8 PRN for MUSCLE SPASMS, TAB 12/24/18 Citric Acid/Sodium Citrate* (Bicitra* (PEDIATRIC)) 1 Meq/Ml Soln, 30 MEQ G-TUBE DAILY for 30 Days, BOTTLE 12/24/18 Oxycodone Hcl* (Oxycodone Hcl* Liq) 5 Mg/5 Ml Solution, 2.5 MG G-TUBE TID, ML 12/24/18 Multivitamins* (Theragran*) 1 Tab Tab, 1 TAB G-TUBE DAILY, TAB 12/24/18 Calcium Carbonate (Tums) 200MG Calcium Chew, 250 MG G-TUBE BID, TAB.CHEW 12/24/18 Magnesium Hydroxide* (Milk Of Magnesia*) 400 Mg/5 Ml Oral.susp, 15 ML PO DAILY, ML 12/24/18 Topiramate* (Topiramate*) 25 Mg Cap.sprink, 50 MG G-TUBE BID, CAP 12/24/18 Metoprolol Tartrate* (Lopressor*) 25 Mg Tab, 25 MG G-TUBE BID, #60 TAB 12/24/18 Ondansetron Hcl* (Zofran*) 4 Mg Tab, 4 MG PO Q6H PRN for NAUSEA AND OR VOMITING, TAB 12/24/18 Ipratropium-Albuterol (Ipratropium-Albuterol) 0.5-3 Mg/3 Ml Ampul.neb, 3 ML INHALATION Q2H PRN for SHORTNESS OF BREATH, #30 VIAL 12/24/18 Ipratropium-Albuterol (Ipratropium-Albuterol) 0.5-3 Mg/3 Ml Ampul.neb, 3 ML INHALATION Q6, #30 VIAL 12/24/18 Medications Current Medications IV Flush (NS 3 ml) 3 ml PER PROTOCOL IV ; Start 12/24/18 at 14:30 Ondansetron HCl (Zofran Inj) 4 mg Q6H PRN IV NAUSEA/VOMITING; Start 12/24/18 at 14:30 Heparin Sodium (Porcine) (Heparin (5000 Units/1ml)) 5,000 unit Q12 SC Last administered on 12/25/18at 21:24; Admin Dose 5,000 UNIT; Start 12/24/18 at 21:00 Vancomycin HCl (Vanco Iv Per Pharmacy) VANCOMYCIN PER PHARMACY PER PROTOCOL XX ; Start 12/24/18 at 15:00 Baclofen (Lioresal) 10 mg Q8H PRN GTB MUSCLE SPASMS; Start 12/24/18 at 15:30 Insulin Glargine (Lantus) 20 units DAILY SC Last administered on 12/25/18at 09:59; Admin Dose 20 UNITS; Start 12/25/18 at 09:00 Levalbuterol (Xopenex Neb) 0.31 mg Q6H RESP THERAPY PRN NEB wheezing; Start 12/24/18 at 15:30 Levetiracetam (Keppra Liquid) 750 mg BID GTB Last administered on 12/25/18at 21:19; Admin Dose 750 MG; Start 12/24/18 at 21:00 Magnesium Hydroxide (Milk Of Mag) 15 ml DAILY PO ; Start 12/25/18 at 09:00 Metoprolol Tartrate (Lopressor) 25 mg BID GTB Last administered on 12/25/18at 21:20; Admin Dose 25 MG; Start 12/24/18 at 21:00 Montelukast Sodium (Singulair) 10 mg QHS GTB Last administered on 12/25/18at 21:19; Admin Dose 10 MG; Start 12/24/18 at 21:00 Polyethylene Glycol (Miralax) 8.5 gm DAILY GTB ; Start 12/25/18 at 09:00 Simethicone (Mylicon Oral Drop) 80 mg TID PRN PO DISTENSION/GAS/BLOATING; Start 12/24/18 at 15:30 Spironolactone (Aldactone) 25 mg BID DIURETICS GTB ; Start 12/24/18 at 18:00 Topiramate (Topamax Sprinkle) 50 mg BID GTB Last administered on 12/25/18at 21:19; Admin Dose 50 MG; Start 12/24/18 at 21:00 Diagnostic Test (Pha) (Accu-Chek) 1 ea 02 XX ; Start 12/25/18 at 02:00 Insulin Aspart (Novolog Insulin Pen) NOVOLOG *MODERATE* ALGORITHM WITH MEALS BEDTIME SC ; Start 12/24/18 at 18:00 Miscellaneous Information 1 ea NOTE XX ; Start 12/24/18 at 16:00 Glucose (Glutose) 15 gm Q15M PRN PO DECREASED GLUCOSE; Start 12/24/18 at 16:00 Glucose (Glutose) 22.5 gm Q15M PRN PO DECREASED GLUCOSE; Start 12/24/18 at 16:00 Dextrose (D50w Syringe) 25 ml Q15M PRN IV DECREASED GLUCOSE; Start 12/24/18 at 16:00 Dextrose (D50w Syringe) 50 ml Q15M PRN IV DECREASED GLUCOSE; Start 12/24/18 at 16:00 Glucagon (Glucagen) 1 mg Q15M PRN IM DECREASED GLUCOSE; Start 12/24/18 at 16:00 Glucose (Glutose) 15 gm Q15M PRN BUCCAL DECREASED GLUCOSE; Start 12/24/18 at 16:00 Gentamicin Sulfate 50 ml @ 100 mls/hr Q12H IVPB Last administered on 12/25/18at 18:00; Admin Dose 100 MLS/HR; Start 12/24/18 at 18:00 Gentamicin Sulfate (Gentamicin Iv Per Pharmacy) PER PHARMACY DOSING NOTE XX ; Start 12/24/18 at 17:00 Vancomycin/Sodium Chloride 250 ml @ 125 mls/hr Q8H IVPB Last administered on 12/25/18at 17:20; Admin Dose 125 MLS/HR; Start 12/24/18 at 18:00 Citric Acid/ Sodium Citrate (Bicitra) 30 ml DAILY GTB ; Start 12/25/18 at 09:00 Sodium Chloride 1,000 ml @ 75 mls/hr [id number] IV Last administered on 12/25/18at 09:53; Admin Dose 75 MLS/HR; Start 12/25/18 at 09:00 Acetaminophen (Tylenol Liquid) 650 mg Q4H PRN PO MILD PAIN(1-3)OR ELEVATED TEMP; Start 12/25/18 at 17:30 Allergies: Coded Allergies: budesonide (Verified Allergy, Unknown, 12/24/18) [facility] transfer sheet list allergies tobramycin (Verified Allergy, Unknown, 12/24/18) transfer list from [facility] pt has allergy to med Past Surgical History Past Surgical Hx: other (cleft lip repair) Social History Alcohol Use: none Smoking Status: Never smoker Drug Use: none Exam/Review of Systems Exam Vitals Vital Signs Date Temp Pulse Resp B/P (MAP) Pulse Ox O2 O2 Flow FiO2 Time Delivery Rate 12/25/18 106 20:34 12/25/18 98.1 20 105/65 99 Mechanical 20:00 (78) Ventilator 12/25/18 30 15:21 Intake and Output 12/24/18 12/24/18 12/25/18 1515:00 23:00 07:00 IntakeIntake Total 250 ml 300 ml OutputOutput Total 450 ml BalanceBalance 250 ml -150 ml Constitutional: non-verbal, frail Psych: confusion Eyes: nl conjunctiva, nl lids, nl sclera, other (L eye deviated laterally); No icteric ENMT: other (s/p repair of cleft lip and palate) Neck: other (trach) Respiratory: crackles/rales Cardiovascular: regular rate and rhythm, nl pulses Gastrointestinal: soft, non-tender, other (PEG); No distended, No tender Genitourinary - Male: other (FC) Musculoskeletal: other (atrophic) Extremities: No edema Neurological: unresponsive Skin: rash or lesions (DTI of R heel) Results Result Diagram: 12/25/18 0744 12/25/18 0551 Results 24hrs Laboratory Tests Test 12/25/18 05:51 12/25/18 07:00 12/25/18 07:44 12/25/18 08:00 Sodium Level 148 H Potassium Level 3.8 Chloride Level 112 H Carbon Dioxide 23 Level Anion Gap 13 Blood Urea 10 Nitrogen Creatinine 0.17 L Est Glomerular > 60 Filtrat Rate mL/min Glucose Level 120 # Calcium Level 9.2 Phosphorus Level 3.4 Magnesium Level 1.9 Total Bilirubin 0.2 Direct Bilirubin 0.00 Indirect 0.2 Bilirubin Aspartate Amino 78 H Transf (AST/SGOT) Alanine 43 Aminotransferase (ALT/SGPT) Alkaline 99 Phosphatase Total Protein 6.5 # Albumin 3.6 # Globulin 2.90 Albumin/Globulin 1.24 Ratio Thyroid 1.160 Stimulating Hormone (TSH) Blood Gas Blood arterial Specimen Source Arterial Blood 12/25/2018 8:18:5 Date Drawn 8 AM Arterial Blood pH 7.403 (Temp corrected) Arterial Blood 42.9 pCO2 (Temp correct) Arterial Blood 122.1 H pO2 (Temp corrected) Arterial Blood 26.2 H HCO3 Arterial Blood 1.3 Base Excess Arterial Blood 98.1 H Oxygen Saturation Ron Test ACCEPTAB Arterial Blood Right Radial Gas Puncture Site Arterial 0.3 Blood Carboxyhemo globin Arterial Blood 0.6 Methemoglobin Blood Gas A-a O2 41.4 H Differential Oxyhemoglobin 97.2 Percent Blood Gas 37.0 Temperature Blood Gas 26.0 Respiration Rate Blood Gas Actual 26 Respiration Rate Blood Gas VENT - AC Modality FiO2 30.0 Blood Gas 0.80 Inspiratory Time Blood Gas Low 5.0 PEEP Setting Blood Gas 31.0 Inspiratory Pressure Blood Gas DT Notified Whom Blood Gas 12/25/2018 8:38:3 Notified Time 9 AM White Blood Count 10.5 # Red Blood Count 2.87 L Hemoglobin 8.5 L Hematocrit 27.4 L Mean Corpuscular 95.5 Volume Mean Corpuscular 29.6 Hemoglobin Mean Corpuscular 31.0 L Hemoglobin Concen t Red Cell 14.6 H Distribution Width Platelet Count 523 H Mean Platelet 11.8 H Volume Immature 1.000 H Granulocytes % Neutrophils % Segmented 52 Neutrophils % (Manual) Band Neutrophils 1 % (Manual) Lymphocytes % Lymphocytes % 28 (Manual) Reactive 1 H Lymphocytes % (Manual) Monocytes % Monocytes % 5 (Manual) Eosinophils % Eosinophils % 13 H (Manual) Basophils % Nucleated Red 0.0 Blood Cells % Immature 0.110 H Granulocytes # Neutrophils # Neutrophils # 5.5 (Manual) Band Neutrophils 0.1 # Lymphocytes 2.9 (Manual) Lymphocytes # Reactive 0.1 H Lymphocytes # Monocytes # Monocytes # 0.5 (Manual) Eosinophils # Basophils # Nucleated Red Blood Cells # Platelet Estimate INCREASED Polychromasia 3+ Anisocytosis 2+ Hemoglobin A1c 5.3 Bedside Glucose 122 Test 12/25/18 09:21 12/25/18 12:16 12/25/18 17:02 12/25/18 17:26 Vancomycin Level 13.6 Trough Bedside Glucose 100 92 Gentamicin Level < 0.6 L Trough Test 12/25/18 19:01 12/25/18 21:35 Gentamicin Level 8.4 Peak Bedside Glucose 96 Medications Medication Current Medications IV Flush (NS 3 ml) 3 ml PER PROTOCOL IV ; Start 12/24/18 at 14:30 Ondansetron HCl (Zofran Inj) 4 mg Q6H PRN IV NAUSEA/VOMITING; Start 12/24/18 at 14:30 Heparin Sodium (Porcine) (Heparin (5000 Units/1ml)) 5,000 unit Q12 SC Last administered on 12/25/18at 21:24; Admin Dose 5,000 UNIT; Start 12/24/18 at 21:00 Vancomycin HCl (Vanco Iv Per Pharmacy) VANCOMYCIN PER PHARMACY PER PROTOCOL XX ; Start 12/24/18 at 15:00 Baclofen (Lioresal) 10 mg Q8H PRN GTB MUSCLE SPASMS; Start 12/24/18 at 15:30 Insulin Glargine (Lantus) 20 units DAILY SC Last administered on 12/25/18at 0 9:59; Admin Dose 20 UNITS; Start 12/25/18 at 09:00 Levalbuterol (Xopenex Neb) 0.31 mg Q6H RESP THERAPY PRN NEB wheezing; Start 12/24/18 at 15:30 Levetiracetam (Keppra Liquid) 750 mg BID GTB Last administered on 12/25/18at 21:19; Admin Dose 750 MG; Start 12/24/18 at 21:00 Magnesium Hydroxide (Milk Of Mag) 15 ml DAILY PO ; Start 12/25/18 at 09:00 Metoprolol Tartrate (Lopressor) 25 mg BID GTB Last administered on 12/25/18at 21:20; Admin Dose 25 MG; Start 12/24/18 at 21:00 Montelukast Sodium (Singulair) 10 mg QHS GTB Last administered on 12/25/18at 21:19; Admin Dose 10 MG; Start 12/24/18 at 21:00 Polyethylene Glycol (Miralax) 8.5 gm DAILY GTB ; Start 12/25/18 at 09:00 Simethicone (Mylicon Oral Drop) 80 mg TID PRN PO DISTENSION/GAS/BLOATING; Start 12/24/18 at 15:30 Spironolactone (Aldactone) 25 mg BID DIURETICS GTB ; Start 12/24/18 at 18:00 Topiramate (Topamax Sprinkle) 50 mg BID GTB Last administered on 12/25/18at 21:19; Admin Dose 50 MG; Start 12/24/18 at 21:00 Diagnostic Test (Pha) (Accu-Chek) 1 ea 02 XX ; Start 12/25/18 at 02:00 Insulin Aspart (Novolog Insulin Pen) NOVOLOG *MODERATE* ALGORITHM WITH MEALS BEDTIME SC ; Start 12/24/18 at 18:00 Miscellaneous Information 1 ea NOTE XX ; Start 12/24/18 at 16:00 Glucose (Glutose) 15 gm Q15M PRN PO DECREASED GLUCOSE; Start 12/24/18 at 16:00 Glucose (Glutose) 22.5 gm Q15M PRN PO DECREASED GLUCOSE; Start 12/24/18 at 16:00 Dextrose (D50w Syringe) 25 ml Q15M PRN IV DECREASED GLUCOSE; Start 12/24/18 at 16:00 Dextrose (D50w Syringe) 50 ml Q15M PRN IV DECREASED GLUCOSE; Start 12/24/18 at 16:00 Glucagon (Glucagen) 1 mg Q15M PRN IM DECREASED GLUCOSE; Start 12/24/18 at 16:00 Glucose (Glutose) 15 gm Q15M PRN BUCCAL DECREASED GLUCOSE; Start 12/24/18 at 16:00 Gentamicin Sulfate 50 ml @ 100 mls/hr Q12H IVPB Last administered on 12/25/18at 18:00; Admin Dose 100 MLS/HR; Start 12/24/18 at 18:00 Gentamicin Sulfate (Gentamicin Iv Per Pharmacy) PER PHARMACY DOSING NOTE XX ; Start 12/24/18 at 17:00 Vancomycin/Sodium Chloride 250 ml @ 125 mls/hr Q8H IVPB Last administered on 12/25/18at 17:20; Admin Dose 125 MLS/HR; Start 12/24/18 at 18:00 Citric Acid/ Sodium Citrate (Bicitra) 30 ml DAILY GTB ; Start 12/25/18 at 09:00 Sodium Chloride 1,000 ml @ 75 mls/hr [id number] IV Last administered on 12/25/18at 09:53; Admin Dose 75 MLS/HR; Start 12/25/18 at 09:00 Acetaminophen (Tylenol Liquid) 650 mg Q4H PRN PO MILD PAIN(1-3)OR ELEVATED TEMP ; Start 12/25/18 at 17:30 HUMBERTO LOCKHART M.D. Dec 25, 2018 23:57
[2018-12-26] VITALS (24 sets, daily range): BP systolic 96–133; BP diastolic 54–84; PULSE 84–111; RESP 20–31
[2018-12-26] MEDS: VANCOMYCIN 750 MG (PMX) 250 ML IVPB SCH ×2 (01:43→10:28)
[2018-12-26] MEDS: SOD CHLORIDE 0.45% 1,000 ML IV SCH ×3 (01:52→22:03)
[2018-12-26] MEDS: ACCU-CHEK XX SCH (01:53)
[2018-12-26] MEDS: GENTAMICIN 80 MG/NS (PMX) 50 ML IVPB SCH ×2 (06:26→17:28)
[2018-12-26] MEDS: SPIRONOLACTONE 25 MG TAB GTB SCH ×2 (06:26→17:27)
[2018-12-26] MEDS ORDERED: POTASSIUM CHLORIDE (SR) 10 MEQ TAB PO ONE (07:30)
[2018-12-26] MEDS: INSULIN ASPART [NOVOLOG] 3 ML PEN SC SCH ×4 (08:00→21:00)
[2018-12-26] MEDS: INSULIN GLARGINE [LANTus] (100 UNITS/ML) SYG SC SCH (08:28)
[2018-12-26] MEDS ORDERED: POTASSIUM CHLORIDE 20 MEQ POWDER FOR ORAL SOLN GTB ONE ×2 (08:30)
[2018-12-26] MEDS: POLYETHYLENE GLYCOL 17 GM PACKET GTB SCH (09:08)
[2018-12-26] MEDS: MAGNESIUM HYDROXIDE 30ML CUP PO SCH (09:08)
[2018-12-26] MEDS: TOPIRAMATE SPRINKLE 25 MG CAP GTB SCH ×2 (09:09→21:40)
[2018-12-26] MEDS: LEVETIRACETAM (100 MG/ML) 5ML CUP GTB SCH ×2 (09:09→21:40)
[2018-12-26] MEDS: HEPARIN 5,000 UNIT/1 ML VIAL SC SCH ×2 (09:22→21:42)
[2018-12-26] MEDS: CITRIC ACID/SODIUM CITRATE 15 ML CUP GTB SCH (09:23)
[2018-12-26] MEDS: METOPROLOL 25 MG TAB GTB SCH ×2 (10:10→22:02)
[2018-12-26] MEDS: POTASSIUM CHLORIDE 100 ML IVPB SCH ×2 (10:48→13:19)
--- NOTE | 2018-12-26 13:41 | PN ---
Date/Time of Note Date/Time of Note DATE: 12/26/18 TIME: 13:36 Assessment/Plan VTE Prophylaxis Risk score (from Ns)>0 risk: 1 SCD applied (from Ns): No SCD contraindicated: other (no) Pharmacological prophylaxis: heparin Lines/Catheters IV C[facility] Type [facility]from [facility] Sal[facility] Lock Urinary Cath still in place: No Assessment/Plan Assessment/Plan 18 yo man with cerebral palsy, chronic trach and PEG coming in with fevers and tachycardia. #Sepsis - Fever to 101.5, tachy to 160s, WBC 15.5 on admission - Per discussion with SNF patient was on gentamicin for meropenem-resistant acenitobacter. Unknown source. - Was on amoxicillin for scales-sensitive enterococcus. - Urine now growing Providencia - Empiric vanco and gent - Consulted Dr. Chambers. - Now 24 hours afebrile. #Respiratory failure - Appears to be chronic, possible from complications of cerebral palsy - Pulmonary consult to manage vent. - Resume PEG tube feeds. Dispo: May warrant discussion of code status again, POLST is from 2009. Otherwise pending cultures then back to SNF. DVT: heparin GI: famotidine Result Diagram: 12/26/18 0527 12/26/18526 Subjective 24 Hr Interval Summary Free Text/Dictation No acute overnight events. Apparently a woman called asking about the patient's condition. Didn't identify herself though. Exam/Review of Systems Exam Vitals Vital Signs Date Temp Pulse Resp B/P (MAP) Pulse Ox O2 O2 Flow FiO2 Time Delivery Rate 12/26/18 109 13:06 12/26/18 97.8 30 133/74 99 11:50 (93) 12/26/18 30 08:07 12/26/18 Mechanical 04:00 Ventilator Intake and Output 12/25/18 12/25/18 12/26/18 1515:00 23:00 07:00 IntakeIntake Total 975 ml 580 ml OutputOutput Total 850 ml 900 ml BalanceBalance 125 ml -320 ml Exam Gen: Dysmorphic man lying on gurney, trached on vent. Eyes: Open spontaneously, eye movements without tracking. Pupils nonreactive. Dysconjugate gaze. No icterus. Head: Large and spherical, atraumatic HEENT: Spontaneous movements on lips. Neck: Trach in place clean and dry. Card: Distant heart sounds, tachy, no murmurs appreciated Chest: Wide, barrel-shaped. Pulm: Mechanical breath sounds throughout. Abd: G tube in place, some dislodgement of sutures and scant brownish exudate. Well healed exp lap scar. Soft, nondistended. Ext: Arms and legs atrophic. No edema. Skin: warm, dry, well perfused. Results Results 24hrs Laboratory Tests Test 12/25/18 17:02 12/25/18 17:26 12/25/18 19:01 12/25/18 21:35 Gentamicin Level < 0.6 L Trough Bedside Glucose 92 96 Gentamicin Level 8.4 Peak Test 12/26/18 05:00 12/26/18 05:27 12/26/18 07:46 12/26/18 11:51 Blood Gas Blood arterial Specimen Source Arterial Blood 12/26/2018 5:00:4 Date Drawn 0 AM Arterial Blood pH 7.400 (Temp corrected) Arterial Blood 45.9 H pCO2 (Temp correct) Arterial Blood 94.9 pO2 (Temp corrected) Arterial Blood 27.8 H HCO3 Arterial Blood 2.4 Base Excess Arterial Blood 96.9 Oxygen Saturation Ron Test ACCEPTAB Arterial Blood Right Radial Gas Puncture Site Arterial 1.0 Blood Carboxyhemo globin Arterial Blood 0.3 Methemoglobin Blood Gas A-a O2 65.1 H Differential Oxyhemoglobin 95.6 Percent Blood Gas 37.0 Temperature Blood Gas 26.0 Respiration Rate Blood Gas Actual 26 Respiration Rate Blood Gas VENT - PC Modality FiO2 30.0 Blood Gas 0.8 Inspiratory Time Blood Gas High 26.0 PEEP Setting Blood Gas Low 5.0 PEEP Setting Blood Gas [place] Notified Whom Blood Gas 12/26/2018 5:32:4 Notified Time 5 AM White Blood Count 9.0 Red Blood Count 3.10 L Hemoglobin 8.7 L Hematocrit 28.5 L Mean Corpuscular 91.9 Volume Mean Corpuscular 28.1 L Hemoglobin Mean Corpuscular 30.5 L Hemoglobin Concen t Red Cell 14.2 Distribution Width Platelet Count 447 H Mean Platelet 10.4 Volume Immature 0.700 H Granulocytes % Neutrophils % 57.9 Lymphocytes % 24.8 Monocytes % 6.3 Eosinophils % 9.7 H Basophils % 0.6 Nucleated Red 0.0 Blood Cells % Immature 0.060 H Granulocytes # Neutrophils # 5.2 Lymphocytes # 2.2 Monocytes # 0.6 Eosinophils # 0.9 H Basophils # 0.1 Nucleated Red 0.0 Blood Cells # Sodium Level 144 Potassium Level 2.5 *L Chloride Level 108 Carbon Dioxide 26 Level Anion Gap 10 Blood Urea 7 Nitrogen Creatinine 0.17 L Est Glomerular > 60 Filtrat Rate mL/min Glucose Level 114 Lactic Acid Level 0.8 Calcium Level 9.3 Magnesium Level 2.0 Bedside Glucose 132 126 Medications Medication Current Medications IV Flush (NS 3 ml) 3 ml PER PROTOCOL IV ; Start 12/24/18 at 14:30 Ondansetron HCl (Zofran Inj) 4 mg Q6H PRN IV NAUSEA/VOMITING; Start 12/24/18 at 14:30 Heparin Sodium (Porcine) (Heparin (5000 Units/1ml)) 5,000 unit Q12 SC Last administered on 12/26/18 09:22; Admin Dose 5,000 UNIT; Start 12/24/18 at 21:00 Vancomycin HCl (Vanco Iv Per Pharmacy) VANCOMYCIN PER PHARMACY PER PROTOCOL XX ; Start 12/24/18 at 15:00 Baclofen (Lioresal) 10 mg Q8H PRN GTB MUSCLE SPASMS; Start 12/24/18 at 15:30 Insulin Glargine (Lantus) 20 units DAILY SC Last administered on 12/26/18 08:28; Admin Dose 20 UNITS; Start 12/25/18 at 09:00 Levalbuterol (Xopenex Neb) 0.31 mg Q6H RESP THERAPY PRN NEB wheezing; Start 12/24/18 at 15:30 Levetiracetam (Keppra Liquid) 750 mg BID GTB Last administered on 12/26/18 09:09; Admin Dose 750 MG; Start 12/24/18 at 21:00 Magnesium Hydroxide (Milk Of Mag) 15 ml DAILY PO Last administered on 12/26/18 09:08; Admin Dose 15 ML; Start 12/25/18 at 09:00 Metoprolol Tartrate (Lopressor) 25 mg BID GTB Last administered on 12/26/18at 10:10; Admin Dose 25 MG; Start 12/24/18 at 21:00 Montelukast Sodium (Singulair) 10 mg QHS GTB Last administered on 12/25/18at 21:19; Admin Dose 10 MG; Start 12/24/18 at 21:00 Polyethylene Glycol (Miralax) 8.5 gm DAILY GTB Last administered on 12/26/18at 09:08; Admin Dose 8.5 GM; Start 12/25/18 at 09:00 Simethicone (Mylicon Oral Drop) 80 mg TID PRN PO DISTENSION/GAS/BLOATING; Start 12/24/18 at 15:30 Spironolactone (Aldactone) 25 mg BID DIURETICS GTB Last administered on 12/26/18at 06:26; Admin Dose 25 MG; Start 12/24/18 at 18:00 Topiramate (Topamax Sprinkle) 50 mg BID GTB Last administered on 12/26/18at 09:09; Admin Dose 50 MG; Start 12/24/18 at 21:00 Diagnostic Test (Pha) (Accu-Chek) 1 ea 02 XX ; Start 12/25/18 at 02:00 Insulin Aspart (Novolog Insulin Pen) NOVOLOG *MODERATE* ALGORITHM WITH MEALS BEDTIME SC ; Start 12/24/18 at 18:00 Miscellaneous Information 1 ea NOTE XX ; Start 12/24/18 at 16:00 Glucose (Glutose) 15 gm Q15M PRN PO DECREASED GLUCOSE; Start 12/24/18 at 16:00 Glucose (Glutose) 22.5 gm Q15M PRN PO DECREASED GLUCOSE; Start 12/24/18 at 16:00 Dextrose (D50w Syringe) 25 ml Q15M PRN IV DECREASED GLUCOSE; Start 12/24/18 at 16:00 Dextrose (D50w Syringe) 50 ml Q15M PRN IV DECREASED GLUCOSE; Start 12/24/18 at 16:00 Glucagon (Glucagen) 1 mg Q15M PRN IM DECREASED GLUCOSE; Start 12/24/18 at 16:00 Glucose (Glutose) 15 gm Q15M PRN BUCCAL DECREASED GLUCOSE; Start 12/24/18 at 16:00 Gentamicin Sulfate 50 ml @ 100 mls/hr Q12H IVPB Last administered on 12/26/18at 06:26; Admin Dose 100 MLS/HR; Start 12/24/18 at 18:00 Gentamicin Sulfate (Gentamicin Iv Per Pharmacy) PER PHARMACY DOSING NOTE XX ; Start 12/24/18 at 17:00 Vancomycin/Sodium Chloride 250 ml @ 125 mls/hr Q8H IVPB Last administered on 12/26/18at 10:28; Admin Dose 125 MLS/HR; Start 12/24/18 at 18:00 Citric Acid/ Sodium Citrate (Bicitra) 30 ml DAILY GTB Last administered on 12/26/18 09:23; Admin Dose 30 ML; Start 12/25/18 at 09:00 Sodium Chloride 1,000 ml @ 75 mls/hr [id number] IV Last administered on 12/26/18 01:52; Admin Dose 75 MLS/HR; Start 12/25/18 at 09:00 Acetaminophen (Tylenol Liquid) 650 mg Q4H PRN PO MILD PAIN(1-3)OR ELEVATED TEMP; Start 12/25/18 at 17:30 Potassium Chloride 100 ml @ 50 mls/hr Q2H IVPB Last administered on 12/26/18at 13:19; Admin Dose 50 MLS/HR; Start 12/26/18 at 10:00; Stop 12/26/18 at 13:59 Miscellaneous Information (*Rx Drug Level Order Reminder*) VANCOMYCIN TROUGH AT 0900 ONCE ONCE XX ; Start 12/27/18 at 09:00; Stop 12/27/18 at 09:01 KIAN BARBOZA MD Dec 26, 2018 13:41
--- NOTE | 2018-12-26 14:51 | CONS ---
Consult Date/Type/Reason Admit Date/Time Dec 24, 2018 at 11:32 Initial Consult Date 12/25/18 Type of Consultation: Pulm Requesting Provider: KIAN BARBOZA MD Date/Time of Note DATE: 12/26/18 TIME: 14:50 Subjective Tachy overnight. Now improved. On the vent. Objective Vitals Vital Signs Date Temp Pulse Resp B/P (MAP) Pulse Ox O2 O2 Flow FiO2 Time Delivery Rate 12/26/18 109 13:06 12/26/18 26 100 30 13:05 12/26/18 97.8 133/74 11:50 (93) 12/26/18 Mechanical 04:00 Ventilator Intake and Output 12/25/18 12/25/18 12/26/18 1515:00 23:00 07:00 IntakeIntake Total 975 ml 580 ml OutputOutput Total 850 ml 900 ml BalanceBalance 125 ml -320 ml Exam HEENT: Neck supple; no JVD; no LAD CVS: RRR, S1 and S2 CHEST: Coarse BS B/L ABD: Soft, NT, + BS EXT: No c/c; + contractures Results/Medications Result Diagram: 12/26/1852612/26/18526 Results 24 hrs Laboratory Tests Test 12/25/18 17:02 12/25/18 17:26 12/25/18 19:01 12/25/18 21:35 Gentamicin Level < 0.6 L Trough Bedside Glucose 92 96 Gentamicin Level 8.4 Peak Test 12/26/18 05:00 12/26/18 05:27 12/26/18 07:46 12/26/18 11:51 Blood Gas Blood arterial Specimen Source Arterial Blood 12/26/2018 5:00:4 Date Drawn 0 AM Arterial Blood pH 7.400 (Temp corrected) Arterial Blood 45.9 H pCO2 (Temp correct) Arterial Blood 94.9 pO2 (Temp corrected) Arterial Blood 27.8 H HCO3 Arterial Blood 2.4 Base Excess Arterial Blood 96.9 Oxygen Saturation Ron Test ACCEPTAB Arterial Blood Right Radial Gas Puncture Site Arterial 1.0 Blood Carboxyhemo globin Arterial Blood 0.3 Methemoglobin Blood Gas A-a O2 65.1 H Differential Oxyhemoglobin 95.6 Percent Blood Gas 37.0 Temperature Blood Gas 26.0 Respiration Rate Blood Gas Actual 26 Respiration Rate Blood Gas VENT - PC Modality FiO2 30.0 Blood Gas 0.8 Inspiratory Time Blood Gas High 26.0 PEEP Setting Blood Gas Low 5.0 PEEP Setting Blood Gas MA Notified Whom Blood Gas 12/26/2018 5:32:4 Notified Time 5 AM White Blood Count 9.0 Red Blood Count 3.10 L Hemoglobin 8.7 L Hematocrit 28.5 L Mean Corpuscular 91.9 Volume Mean Corpuscular 28.1 L Hemoglobin Mean Corpuscular 30.5 L Hemoglobin Concen t Red Cell 14.2 Distribution Width Platelet Count 447 H Mean Platelet 10.4 Volume Immature 0.700 H Granulocytes % Neutrophils % 57.9 Lymphocytes % 24.8 Monocytes % 6.3 Eosinophils % 9.7 H Basophils % 0.6 Nucleated Red 0.0 Blood Cells % Immature 0.060 H Granulocytes # Neutrophils # 5.2 Lymphocytes # 2.2 Monocytes # 0.6 Eosinophils # 0.9 H Basophils # 0.1 Nucleated Red 0.0 Blood Cells # Sodium Level 144 Potassium Level 2.5 *L Chloride Level 108 Carbon Dioxide 26 Level Anion Gap 10 Blood Urea 7 Nitrogen Creatinine 0.17 L Est Glomerular > 60 Filtrat Rate mL/min Glucose Level 114 Lactic Acid Level 0.8 Calcium Level 9.3 Magnesium Level 2.0 Bedside Glucose 132 126 Home Meds Reported Medications Metformin* (Glucophage*) 500 Mg Tab, 500 MG PO AC BREAKFAST, #60 TAB 12/24/18 Levalbuterol* (Xopenex*) 0.31 Mg/3 Ml Nebu, 0.31 MG INHALATION Q6H for WHEEZING AND SOB, EA 12/24/18 Simethicone* (Simethicone* Drop) 40 Mg/0.6 Ml Drops.susp, 80 MG PO TID PRN for DISTENSION/GAS/BLOATING, EACH 12/24/18 Furosemide* (Lasix* Liq) 40 Mg/4 Ml Solution, 15 MG G-TUBE BID, #30 ML 12/24/18 Spironolactone* (Aldactone*) 25 Mg Tablet, 25 MG G-TUBE BID, #60 TAB 12/24/18 Polyethylene Glycol* (Miralax*) 17 Gm Powd.pack, 8.5 GM G-TUBE DAILY, #30 PACKET 12/24/18 Insulin Glargine* (Lantus*) 100 Unit/Ml Soln, 20 UNIT SC DAILY, #1 VIAL 12/24/18 Levetiracetam* (Keppra*) 500 Mg/5 Ml Solution, 750 MG G-TUBE BID, BOTTLE 12/24/18 Erythromycin Ethylsuccinate (E.E.S. 200) 200 Mg/5 Ml Susp.recon, 135 MG G-TUBE Q6, #1 BOTTLE 12/24/18 Montelukast Sodium* (Singulair*) 10 Mg Tablet, 10 MG G-TUBE QHS, #30 TAB 12/24/18 Sulfamethoxazole/Trimethoprim (Sulfatrim 800-160 mg/20 ml Renate) 800-160 mg/20 mL Susp, 5 ML G-TUBE BID, #1 BOTTLE 12/24/18 Acetaminophen* (Acetaminophen* Susp) 160 Mg/5 Ml Oral.susp, 640 MG PO Q4H PRN for PAIN OR TEMP ABOVE 38C, ML 12/24/18 Baclofen* (Baclofen*) 10 Mg Tablet, 10 MG G-TUBE Q8 PRN for MUSCLE SPASMS, TAB 12/24/18 Citric Acid/Sodium Citrate* (Bicitra* (PEDIATRIC)) 1 Meq/Ml Soln, 30 MEQ G-TUBE DAILY for 30 Days, BOTTLE 12/24/18 Oxycodone Hcl* (Oxycodone Hcl* Liq) 5 Mg/5 Ml Solution, 2.5 MG G-TUBE TID, ML 12/24/18 Multivitamins* (Theragran*) 1 Tab Tab, 1 TAB G-TUBE DAILY, TAB 12/24/18 Calcium Carbonate (Tums) 200MG Calcium Chew, 250 MG G-TUBE BID, TAB.CHEW 12/24/18 Magnesium Hydroxide* (Milk Of Magnesia*) 400 Mg/5 Ml Oral.susp, 15 ML PO DAILY, ML 12/24/18 Topiramate* (Topiramate*) 25 Mg Cap.sprink, 50 MG G-TUBE BID, CAP 12/24/18 Metoprolol Tartrate* (Lopressor*) 25 Mg Tab, 25 MG G-TUBE BID, #60 TAB 12/24/18 Ondansetron Hcl* (Zofran*) 4 Mg Tab, 4 MG PO Q6H PRN for NAUSEA AND OR VOMITING, TAB 12/24/18 Ipratropium-Albuterol (Ipratropium-Albuterol) 0.5-3 Mg/3 Ml Ampul.neb, 3 ML INHALATION Q2H PRN for SHORTNESS OF BREATH, #30 VIAL 12/24/18 Ipratropium-Albuterol (Ipratropium-Albuterol) 0.5-3 Mg/3 Ml Ampul.neb, 3 ML INHALATION Q6, #30 VIAL 12/24/18 Medications Current Medications IV Flush (NS 3 ml) 3 ml PER PROTOCOL IV ; Start 12/24/18 at 14:30 Ondansetron HCl (Zofran Inj) 4 mg Q6H PRN IV NAUSEA/VOMITING; Start 12/24/18 at 14:30 Heparin Sodium (Porcine) (Heparin (5000 Units/1ml)) 5,000 unit Q12 SC Last administered on 12/26/18 09:22; Admin Dose 5,000 UNIT; Start 12/24/18 at 21:00 Vancomycin HCl (Vanco Iv Per Pharmacy) VANCOMYCIN PER PHARMACY PER PROTOCOL XX ; Start 12/24/18 at 15:00 Baclofen (Lioresal) 10 mg Q8H PRN GTB MUSCLE SPASMS; Start 12/24/18 at 15:30 Insulin Glargine (Lantus) 20 units DAILY SC Last administered on 12/26/18at 08:28; Admin Dose 20 UNITS; Start 12/25/18 at 09:00 Levalbuterol (Xopenex Neb) 0.31 mg Q6H RESP THERAPY PRN NEB wheezing; Start at 15:30 Levetiracetam (Keppra Liquid) 750 mg BID GTB Last administered on 12/26/18 09:09; Admin Dose 750 MG; Start 12/24/18 at 21:00 Magnesium Hydroxide (Milk Of Mag) 15 ml DAILY PO Last administered on 12/26/18 09:08; Admin Dose 15 ML; Start 12/25/18 at 09:00 Metoprolol Tartrate (Lopressor) 25 mg BID GTB Last administered on 12/26/18at 10:10; Admin Dose 25 MG; Start 12/24/18 at 21:00 Montelukast Sodium (Singulair) 10 mg QHS GTB Last administered on 12/25/18 21:19; Admin Dose 10 MG; Start 12/24/18 at 21:00 Polyethylene Glycol (Miralax) 8.5 gm DAILY GTB Last administered on 12/26/18at 09:08; Admin Dose 8.5 GM; Start 12/25/18 at 09:00 Simethicone (Mylicon Oral Drop) 80 mg TID PRN PO DISTENSION/GAS/BLOATING; Start 12/24/18 at 15:30 Spironolactone (Aldactone) 25 mg BID DIURETICS GTB Last administered on 12/26/18at 06:26; Admin Dose 25 MG; Start 12/24/18 at 18:00 Topiramate (Topamax Sprinkle) 50 mg BID GTB Last administered on 12/26/18at 09:09; Admin Dose 50 MG; Start 12/24/18 at 21:00 Diagnostic Test (Pha) (Accu-Chek) 1 ea 02 XX ; Start 12/25/18 at 02:00 Insulin Aspart (Novolog Insulin Pen) NOVOLOG *MODERATE* ALGORITHM WITH MEALS BEDTIME SC ; Start 12/24/18 at 18:00 Miscellaneous Information 1 ea NOTE XX ; Start 12/24/18 at 16:00 Glucose (Glutose) 15 gm Q15M PRN PO DECREASED GLUCOSE; Start 12/24/18 at 16:00 Glucose (Glutose) 22.5 gm Q15M PRN PO DECREASED GLUCOSE; Start 12/24/18 at 16:00 Dextrose (D50w Syringe) 25 ml Q15M PRN IV DECREASED GLUCOSE; Start 12/24/18 at 16:00 Dextrose (D50w Syringe) 50 ml Q15M PRN IV DECREASED GLUCOSE; Start 12/24/18 at 16:00 Glucagon (Glucagen) 1 mg Q15M PRN IM DECREASED GLUCOSE; Start 12/24/18 at 16:00 Glucose (Glutose) 15 gm Q15M PRN BUCCAL DECREASED GLUCOSE; Start 12/24/18 at 16:00 Gentamicin Sulfate 50 ml @ 100 mls/hr Q12H IVPB Last administered on 12/26/18at 06:26; Admin Dose 100 MLS/HR; Start 12/24/18 at 18:00 Gentamicin Sulfate (Gentamicin Iv Per Pharmacy) PER PHARMACY DOSING NOTE XX ; Start 12/24/18 at 17:00 Vancomycin/Sodium Chloride 250 ml @ 125 mls/hr Q8H IVPB Last administered on 12/26/18at 10:28; Admin Dose 125 MLS/HR; Start 12/24/18 at 18:00 Citric Acid/ Sodium Citrate (Bicitra) 30 ml DAILY GTB Last administered on 12/26/18at 09:23; Admin Dose 30 ML; Start 12/25/18 at 09:00 Sodium Chloride 1,000 ml @ 75 mls/hr [id number] IV Last administered on 12/26/18at 01:52; Admin Dose 75 MLS/HR; Start 12/25/18 at 09:00 Acetaminophen (Tylenol Liquid) 650 mg Q4H PRN PO MILD PAIN(1-3)OR ELEVATED TEMP; Start 12/25/18 at 17:30 Miscellaneous Information (*Rx Drug Level Order Reminder*) VANCOMYCIN TROUGH AT 0900 ONCE ONCE XX ; Start 12/27/18 at 09:00; Stop 12/27/18 at 09:01 Famotidine (Pepcid Iv) 20 mg BID IV ; Start 12/26/18 at 21:00 Assessment/Plan Assessment/Plan (Daily) IMP: 1. Sepsis--2/2 UTI + HCAP. 2. Vent Dependent Resp Failure 3. Cerebral Palsy RECS: 1. IVFs 2. [place]ley-culture--follow up and de-escalate abx 3. Broad spectrum abx 4. Vent support 5. TF/Free H20 RAHEL WIN MD Dec 26, 2018 14:51
--- NOTE | 2018-12-26 15:29 | CONS ---
[facility] HCIS Consult Follow-up Patient Name: Damian Govea Unit Number: [id number] Date of : 2000 Patient Status: Admitted Inpatient Attending Doctor: Kian Zuniga MD Edit: HUMBERTO MCCLURE M.D. on 12/27/18 @ 02:02 Kami: I discussed the management with VENETIAN BL[employer] MACHINE OPERATOR Alba and agree with her Assessment/Plan Assessment/Plan Hospital Course (Demo Recall) - severe sepsis on admission due to UTI and ventilator associated pneumonia - UTI due to providentia stuartii - h/o UTI due to E. faecalise at LT; was on amoxicillin pPEG (12/20/2018- 12/23/2018) - ventilator associated pneumonia of L base due to Ecoli and Gram negative gurinder - h/o VAP due to acinetobacter vs. colonization of the resp tract by acinetobacter; has been on IV gentamicin, started at LTAC originally (12/22/2018- ) - VDRF - h/o tracheostomy - dysphagia - PEG dependent status - cerebral palsy - epilepsy - DTI of R heel (present at admission) - atrophy of limbs - h/o repair of cleft lip and palate Recommendations: - pending results: blood culture (NGTD), tracheal aspirate (Ecoli and GNR) - Discontinue IV vancomycin (12/24/2018-) and gentamicin (12/22/2018-); - Start Merrem x5d course (12/26/18 - ) Management d/w nsg and with Dr. Mcclure Thank you Consultation Date/Type/Reason Admit Date/Time Dec 24, 2018 at 11:32 Initial Consult Date 12/25/18 Type of Consult ID Requesting Provider: KIAN ZUNIGA MD Date/Time of Note DATE: 12/26/18 TIME: 15:25 24 HR Interval Summary Free Text/Dictation The patient is unable to contribute to ROS d/t chronic encephalopathy. Patient has remained afebrile, no acute issues reported by nursing. urine growing providencia stuartii, sputum ecoli and gnr. Exam/Review of Systems Exam Vitals Vital Signs Date Temp Pulse Resp B/P (MAP) Pulse Ox O2 O2 Flow FiO2 Time Delivery Rate 12/26/18 109 13:06 12/26/18 26 100 30 13:05 12/26/18 97.8 133/74 11:50 (93) 12/26/18 Mechanical 04:00 Ventilator Intake and Output 12/25/18 12/25/18 12/26/18 1515:00 23:00 07:00 IntakeIntake Total 975 ml 580 ml OutputOutput Total 850 ml 900 ml BalanceBalance 125 ml -320 ml Allergies Coded Allergies budesonide (Verified Allergy, Unknown, 12/24/18) [facility] transfer sheet list allergies tobramycin (Verified Allergy, Unknown, 12/24/18) transfer list from [facility] pt has allergy to med Constitutional: alert, frail Psych: other (TIFF) Head: atraumatic Eyes: nl conjunctiva, nl lids, nl sclera, other (L eye laterally deviated.) ENMT: other (s/p repair of cleft lip/palate) Neck: other (trach site midline, site c/d/i, on vent, fio2 30%.) Respiratory: normal air movement, crackles/rales (mild bilaterally, anteriorly); No wheezing Cardiovascular: regular rate and rhythm, nl pulses Gastrointestinal: soft, non-tender, bowel sounds (normoactive bowel sounds), other (GT site c/d/i, connected to TF) Genitourinary - Male: other (+F/c) Musculoskeletal: muscle weakness (atrophic) Extremities: normal pulses; No edema Neurological: other (eyes are open, without eye tracking, eyes are roving, no following of commands or attempts to communicate) Skin: nl turgor, other (DTI R heel) Results Result Diagram: 12/26/1852612/26/18 05 Results 24hrs Laboratory Tests Test 12/25/18 17:02 12/25/18 17:26 12/25/18 19:01 12/25/18 21:35 Gentamicin Level < 0.6 L Trough Bedside Glucose 92 96 Gentamicin Level 8.4 Peak Test 12/26/18 05:00 12/26/18 05:27 12/26/18 07:46 12/26/18 11:51 Blood Gas Blood arterial Specimen Source Arterial Blood 12/26/2018 5:00:4 Date Drawn 0 AM Arterial Blood pH 7.400 (Temp corrected) Arterial Blood 45.9 H pCO2 (Temp correct) Arterial Blood 94.9 pO2 (Temp corrected) Arterial Blood 27.8 H HCO3 Arterial Blood 2.4 Base Excess Arterial Blood 96.9 Oxygen Saturation Ron Test ACCEPTAB Arterial Blood Right Radial Gas Puncture Site Arterial 1.0 Blood Carboxyhemo globin Arterial Blood 0.3 Methemoglobin Blood Gas A-a O2 65.1 H Differential Oxyhemoglobin 95.6 Percent Blood Gas 37.0 Temperature Blood Gas 26.0 Respiration Rate Blood Gas Actual 26 Respiration Rate Blood Gas VENT - PC Modality FiO2 30.0 Blood Gas 0.8 Inspiratory Time Blood Gas High 26.0 PEEP Setting Blood Gas Low 5.0 PEEP Setting Blood Gas MA Notified Whom Blood Gas 12/26/2018 5:32:4 Notified Time 5 AM White Blood Count 9.0 Red Blood Count 3.10 L Hemoglobin 8.7 L Hematocrit 28.5 L Mean Corpuscular 91.9 Volume Mean Corpuscular 28.1 L Hemoglobin Mean Corpuscular 30.5 L Hemoglobin Concen t Red Cell 14.2 Distribution Width Platelet Count 447 H Mean Platelet 10.4 Volume Immature 0.700 H Granulocytes % Neutrophils % 57.9 Lymphocytes % 24.8 Monocytes % 6.3 Eosinophils % 9.7 H Basophils % 0.6 Nucleated Red 0.0 Blood Cells % Immature 0.060 H Granulocytes # Neutrophils # 5.2 Lymphocytes # 2.2 Monocytes # 0.6 Eosinophils # 0.9 H Basophils # 0.1 Nucleated Red 0.0 Blood Cells # Sodium Level 144 Potassium Level 2.5 *L Chloride Level 108 Carbon Dioxide 26 Level Anion Gap 10 Blood Urea 7 Nitrogen Creatinine 0.17 L Est Glomerular > 60 Filtrat Rate mL/min Glucose Level 114 Lactic Acid Level 0.8 Calcium Level 9.3 Magnesium Level 2.0 Bedside Glucose 132 126 Imaging Imaging CXR 12/26/18 IMPRESSION: 1. Tracheostomy in appropriate position. 2. Patchy bilateral air space opacities representing asymmetric pulmonary edema or infection. 3. Left pleural effusion. Medications Medication Current Medications IV Flush (NS 3 ml) 3 ml PER PROTOCOL IV ; Start 12/24/18 at 14:30 Ondansetron HCl (Zofran Inj) 4 mg Q6H PRN IV NAUSEA/VOMITING; Start 12/24/18 at 14:30 Heparin Sodium (Porcine) (Heparin (5000 Units/1ml)) 5,000 unit Q12 SC Last administered on 12/26/18 09:22; Admin Dose 5,000 UNIT; Start 12/24/18 at 21:00 Vancomycin HCl (Vanco Iv Per Pharmacy) VANCOMYCIN PER PHARMACY PER PROTOCOL XX ; Start 12/24/18 at 15:00 Baclofen (Lioresal) 10 mg Q8H PRN GTB MUSCLE SPASMS; Start 12/24/18 at 15:30 Insulin Glargine (Lantus) 20 units DAILY SC Last administered on 12/26/18 08:28; Admin Dose 20 UNITS; Start 12/25/18 at 09:00 Levalbuterol (Xopenex Neb) 0.31 mg Q6H RESP THERAPY PRN NEB wheezing; Start 12/24/18 at 15:30 Levetiracetam (Keppra Liquid) 750 mg BID GTB Last administered on 12/26/18 09:09; Admin Dose 750 MG; Start 12/24/18 at 21:00 Magnesium Hydroxide (Milk Of Mag) 15 ml DAILY PO Last administered on 12/26/18 09:08; Admin Dose 15 ML; Start 12/25/18 at 09:00 Metoprolol Tartrate (Lopressor) 25 mg BID GTB Last administered on 12/26/18 10:10; Admin Dose 25 MG; Start 12/24/18 at 21:00 Montelukast Sodium (Singulair) 10 mg QHS GTB Last administered on 12/25/18 21 :19; Admin Dose 10 MG; Start 12/24/18 at 21:00 Polyethylene Glycol (Miralax) 8.5 gm DAILY GTB Last administered on 12/26/18 09:08; Admin Dose 8.5 GM; Start 12/25/18 at 09:00 Simethicone (Mylicon Oral Drop) 80 mg TID PRN PO DISTENSION/GAS/BLOATING; Start 12/24/18 at 15:30 Spironolactone (Aldactone) 25 mg BID DIURETICS GTB Last administered on 3/24/19at 06:26; Admin Dose 25 MG; Start 12/24/18 at 18:00 Topiramate (Topamax Sprinkle) 50 mg BID GTB Last administered on 12/26/18at 09:09; Admin Dose 50 MG; Start 12/24/18 at 21:00 Diagnostic Test (Pha) (Accu-Chek) 1 ea 02 XX ; Start 12/25/18 at 02:00 Insulin Aspart (Novolog Insulin Pen) NOVOLOG *MODERATE* ALGORITHM WITH MEALS BEDTIME SC ; Start 12/24/18 at 18:00 Miscellaneous Information 1 ea NOTE XX ; Start 12/24/18 at 16:00 Glucose (Glutose) 15 gm Q15M PRN PO DECREASED GLUCOSE; Start 12/24/18 at 16:00 Glucose (Glutose) 22.5 gm Q15M PRN PO DECREASED GLUCOSE; Start 12/24/18 at 16:00 Dextrose (D50w Syringe) 25 ml Q15M PRN IV DECREASED GLUCOSE; Start 12/24/18 at 16:00 Dextrose (D50w Syringe) 50 ml Q15M PRN IV DECREASED GLUCOSE; Start 12/24/18 at 16:00 Glucagon (Glucagen) 1 mg Q15M PRN IM DECREASED GLUCOSE; Start 12/24/18 at 16:00 Glucose (Glutose) 15 gm Q15M PRN BUCCAL DECREASED GLUCOSE; Start 12/24/18 at 16:00 Gentamicin Sulfate 50 ml @ 100 mls/hr Q12H IVPB Last administered on 12/26/18at 06:26; Admin Dose 100 MLS/HR; Start 12/24/18 at 18:00 Gentamicin Sulfate (Gentamicin Iv Per Pharmacy) PER PHARMACY DOSING NOTE XX ; Start 12/24/18 at 17:00 Vancomycin/Sodium Chloride 250 ml @ 125 mls/hr Q8H IVPB Last administered on at 10:28; Admin Dose 125 MLS/HR; Start 12/24/18 at 18:00 Citric Acid/ Sodium Citrate (Bicitra) 30 ml DAILY GTB Last administered on 12/26/18at 09:23; Admin Dose 30 ML; Start 12/25/18 at 09:00 Sodium Chloride 1,000 ml @ 75 mls/hr [id number] IV Last administered on 12/26/18at 01:52; Admin Dose 75 MLS/HR; Start 12/25/18 at 09:00 Acetaminophen (Tylenol Liquid) 650 mg Q4H PRN PO MILD PAIN(1-3)OR ELEVATED TEMP; Start 12/25/18 at 17:30 Miscellaneous Information (*Rx Drug Level Order Reminder*) VANCOMYCIN TROUGH AT 0900 ONCE ONCE XX ; Start 12/27/18 at 09:00; Stop 12/27/18 at 09:01 Famotidine (Pepcid Iv) 20 mg BID IV ; Start 12/26/18 at 21:00 TYREE AHUJA NP Dec 26, 2018 15:29
[2018-12-26] MEDS: MEROPENEM 1 GM/50ML(PMX) 50 ML IVPB SCH (21:39)
[2018-12-26] MEDS: FAMOTIDINE 20 MG INJ IV SCH (21:40)
[2018-12-26] MEDS: MONTELUKAST 10 MG TAB GTB SCH (21:40)
[2018-12-27] VITALS (15 sets, daily range): BP systolic 108–122; BP diastolic 64–82; PULSE 68–105; RESP 20–31
[2018-12-27] MEDS: ACCU-CHEK XX SCH (02:00)
[2018-12-27] MEDS: SPIRONOLACTONE 25 MG TAB GTB SCH (06:20)
[2018-12-27] MEDS: MEROPENEM 1 GM/50ML(PMX) 50 ML IVPB SCH ×2 (06:20→13:58)
[2018-12-27] MEDS: INSULIN ASPART [NOVOLOG] 3 ML PEN SC SCH ×2 (08:00→11:56)
[2018-12-27] MEDS: INSULIN GLARGINE [LANTus] (100 UNITS/ML) SYG SC SCH (08:28)
[2018-12-27] MEDS: CITRIC ACID/SODIUM CITRATE 15 ML CUP GTB SCH (09:26)
[2018-12-27] MEDS: FAMOTIDINE 20 MG INJ IV SCH (09:27)
[2018-12-27] MEDS: LEVETIRACETAM (100 MG/ML) 5ML CUP GTB SCH (09:27)
[2018-12-27] MEDS: TOPIRAMATE SPRINKLE 25 MG CAP GTB SCH (09:27)
[2018-12-27] MEDS: POLYETHYLENE GLYCOL 17 GM PACKET GTB SCH (09:27)
[2018-12-27] MEDS: MAGNESIUM HYDROXIDE 30ML CUP PO SCH (09:27)
[2018-12-27] MEDS: METOPROLOL 25 MG TAB GTB SCH (09:27)
[2018-12-27] MEDS: HEPARIN 5,000 UNIT/1 ML VIAL SC SCH (09:29)
--- NOTE | 2018-12-27 11:19 | PDOCDIS ---
Discharge Instructions CONDITION [id number] Patient Condition: [id number] Stable RAY MADSEN Dec 27, 2018 11:19
--- NOTE | 2018-12-27 11:26 | DS ---
Date/Time of Note Date/Time of Note DATE: 12/27/18 TIME: : Discharge Summary Admission/Discharge Info Admit Date/Time Dec 24, 2018 at 11:32 Discharge Date/Time Discharge Diagnosis #Sepsis -resolving now, secondary to [place] she had a UTI and Morganella plus E. coli respiratory infection, improving on antibiotics, seen by ID team. #Respiratory failure - improving, on mechanical ventilation via trach at baseline # cerebral palsy #G-tube feeds: Patient Condition: Stable Hx of Present Illness 18 man with cerebral palsy, chronic PEG and trach on vent admitted for fever and tachycardia. History is per charting and transfer documentation; patient is nonverbal. Apparently rescue ambulance was called from [facility] due to tachycardia. He was brought to the [facility] ED. Per documentation, he's been on erythromycin, amoxicillin, and gentamycin at the time of transfer. There is also a POLST in the chart from 2009 signed by his father Damian Govea Sr ([phone]) keeping the patient full code. In the ED he was febrile to 101.5, tachy to 160s, BP 131/78, breathing comfortably on vent at 35% FiO2. CXR showed possible L basilar consolidation with possible effusion. Hospital Course Patient was admitted, seen by infectious disease and pulmonary team. Placed on antibiotics. Fever subsided, leukocytosis improved. Urine culture positive for [place] she has species. Respiratory culture positive for E. coli and Morganella species. ID team adjusted antibiotics accordingly based on these culture results. Again sepsis improved as the fever subsided and leukocytosis improved as mentioned above. G-tube was inspected, initially was thought that this could be the source of infection, however patient was able to tolerate G- tube feeds, and G-tube site was cleaned and did not show any signs of any further redness or any discharge on the day of discharge. Patient back at baseline status today, vital signs are stable, tolerating tube feeds. Patient likely will be discharged back to detention facility today in improved condition. He will need IV meropenem antibiotics until December 31, 2018 to treat his infections. See printed medical reconciliation sheet for full list of discharge medications. Home Meds Reported Medications Metformin* (Glucophage*) 500 Mg Tab, 500 MG PO AC BREAKFAST, #60 TAB 12/24/18 Levalbuterol* (Xopenex*) 0.31 Mg/3 Ml Nebu, 0.31 MG INHALATION Q6H for WHEEZING AND SOB, EA 12/24/18 Simethicone* (Simethicone* Drop) 40 Mg/0.6 Ml Drops.susp, 80 MG PO TID PRN for DISTENSION/GAS/BLOATING, EACH 12/24/18 Furosemide* (Lasix* Liq) 40 Mg/4 Ml Solution, 15 MG G-TUBE BID, #30 ML 12/24/18 Spironolactone* (Aldactone*) 25 Mg Tablet, 25 MG G-TUBE BID, #60 TAB 12/24/18 Polyethylene Glycol* (Miralax*) 17 Gm Powd.pack, 8.5 GM G-TUBE DAILY, #30 PACKET 12/24/18 Insulin Glargine* (Lantus*) 100 Unit/Ml Soln, 20 UNIT SC DAILY, #1 VIAL 12/24/18 Levetiracetam* (Keppra*) 500 Mg/5 Ml Solution, 750 MG G-TUBE BID, BOTTLE 12/24/18 Erythromycin Ethylsuccinate (E.E.S. 200) 200 Mg/5 Ml Susp.recon, 135 MG G-TUBE Q6, #1 BOTTLE 12/24/18 Montelukast Sodium* (Singulair*) 10 Mg Tablet, 10 MG G-TUBE QHS, #30 TAB 12/24/18 Sulfamethoxazole/Trimethoprim (Sulfatrim 800-160 mg/20 ml Renate) 800-160 mg/20 mL Susp, 5 ML G-TUBE BID, #1 BOTTLE 12/24/18 Acetaminophen* (Acetaminophen* Susp) 160 Mg/5 Ml Oral.susp, 640 MG PO Q4H PRN for PAIN OR TEMP ABOVE 38C, ML 12/24/18 Baclofen* (Baclofen*) 10 Mg Tablet, 10 MG G-TUBE Q8 PRN for MUSCLE SPASMS, TAB 12/24/18 Citric Acid/Sodium Citrate* (Bicitra* (PEDIATRIC)) 1 Meq/Ml Soln, 30 MEQ G-TUBE DAILY for 30 Days, BOTTLE 12/24/18 Oxycodone Hcl* (Oxycodone Hcl* Liq) 5 Mg/5 Ml Solution, 2.5 MG G-TUBE TID, ML 12/24/18 Multivitamins* (Theragran*) 1 Tab Tab, 1 TAB G-TUBE DAILY, TAB 12/24/18 Calcium Carbonate (Tums) 200MG Calcium Chew, 250 MG G-TUBE BID, TAB.CHEW 12/24/18 Magnesium Hydroxide* (Milk Of Magnesia*) 400 Mg/5 Ml Oral.susp, 15 ML PO DAILY, ML 12/24/18 Topiramate* (Topiramate*) 25 Mg Cap.sprink, 50 MG G-TUBE BID, CAP 12/24/18 Metoprolol Tartrate* (Lopressor*) 25 Mg Tab, 25 MG G-TUBE BID, #60 TAB 12/24/18 Ondansetron Hcl* (Zofran*) 4 Mg Tab, 4 MG PO Q6H PRN for NAUSEA AND OR VOMITING, TAB 12/24/18 Ipratropium-Albuterol (Ipratropium-Albuterol) 0.5-3 Mg/3 Ml Ampul.neb, 3 ML INHALATION Q2H PRN for SHORTNESS OF BREATH, #30 VIAL 12/24/18 Ipratropium-Albuterol (Ipratropium-Albuterol) 0.5-3 Mg/3 Ml Ampul.neb, 3 ML INHALATION Q6, #30 VIAL 12/24/18 Primary Care Provider Care Physician No Primary Time spent on discharge: > 30 minutes Pending Labs Laboratory Tests Test 12/26/18 11:51 12/26/18 17:16 12/26/18 20:39 12/27/18 05:55 Bedside 126 104 123 Glucose mg/dL (70-220) mg/dL (70-220) mg/dL (70-220) White Blood 8.1 Count 10^3/ul (4.8-1 0.8) Red Blood 3.15 Count 10^6/ul (4.70- 6.10) Hemoglobin 8.8 g/dl (14.0-18. 0) Hematocrit 29.0 % (42.0-52.0) Mean 92.1 Corpuscular fl (72.0-104.0 Volume ) Mean 27.9 Corpuscular pg (29.0-33.0) Hemoglobin Mean 30.3 Corpuscular g/dl (32.0-37. Hemoglobin Conc 0) ent Red Cell 14.3 Distribution % (11.5-14.5) Width Platelet Count 443 10^3/UL (140-4 15) Mean Platelet 10.7 Volume fl (7.4-10.4) Immature 1.600 Granulocytes % % (0.001-0.429 ) Neutrophils % 48.3 % (30.0-74.0) Lymphocytes % 31.0 % (18.0-55.0) Monocytes % 6.9 % (0.0-13.0) Eosinophils % 11.6 % (0.0-7.0) Basophils % 0.6 % (0.0-2.0) Nucleated Red 0.0 Blood Cells % /100WBC (0.0-0 .0) Immature 0.130 Granulocytes # 10^3/ul (0.0-0 .031) Neutrophils # 3.9 10^3/ul (1.6-7 .5) Lymphocytes # 2.5 10^3/ul (0.8-2 .9) Monocytes # 0.6 10^3/ul (0.3-0 .9) Eosinophils # 0.9 10^3/ul (0.0-0 .5) Basophils # 0.1 10^3/ul (0.0-0 .1) Nucleated Red 0.0 Blood Cells # 10^3/ul (0.0-0 .0) Sodium Level 141 mmol/L (135-14 4) Potassium 3.5 Level mmol/L (3.5-5. 1) Chloride Level 105 mmol/L (97-110 ) Carbon Dioxide 23 Level mmol/L (21-31) Anion Gap 13 (5-13) Blood Urea 6 mg/dl (7-20) Nitrogen Creatinine 0.20 mg/dl (0.61-1. 24) Est Glomerular > 60 Filtrat mL/min (>60) Rate mL/min Glucose Level 111 mg/dl (70-220) Calcium Level 9.5 mg/dl (8.4-10. 2) Phosphorus 4.3 Level mg/dl (2.5-4.9 ) Magnesium 2.1 Level mg/dl (1.7-2.5 ) Test 12/27/18 08:19 Bedside 139 Glucose mg/dL (70-220) RAY MADSEN Dec 27, 2018 11:26
--- NOTE | 2018-12-27 11:38 | CONS ---
Consult Date/Type/Reason Admit Date/Time Dec 24, 2018 at 11:32 Initial Consult Date 12/25/18 Type of Consult Pulmonary Requesting Provider: KIAN BARBOZA MD Date/Time of Note DATE: 12/27/18 TIME: 11:37 Subjective Patient stable this morning no respiratory distress. Objective Vital Signs Date Temp Pulse Resp B/P (MAP) Pulse Ox O2 O2 Flow FiO2 Time Delivery Rate 12/27/18 84 26 96 30 09:27 12/27/18 97.4 122/82 07:39 (95) 12/26/18 Mechanical 04:00 Ventilator Intake and Output 12/26/18 12/26/18 12/27/18 1414:59 22:59 06:59 IntakeIntake Total 2050 ml 1070 ml OutputOutput Total 850 ml 1400 ml 900 ml BalanceBalance -850 ml 650 ml 170 ml Exam GENERAL: Young gentleman on mechanical ventilation via tracheostomy VITAL SIGNS: per chart NECK: Supple. No JVD or lymphadenopathy. CARDIAC EXAM: S1, S2. No added sounds or murmurs. CHEST: clear bilaterally, No added sounds, rales or wheezes ABDOMEN: Soft, nontender. No guarding or rebound. EXTREMITIES: No cyanosis, clubbing or edema. NEUROLOGIC: Contractures Vent Setting Ventilator Support Mode: PC Fraction of Inspired Oxygen pe: 30 Positive End Expiratory Pressu: 5.0 Results/Medications Result Diagram: 12/27/18 0555 12/27/18 0555 Results 24 hrs Laboratory Tests Test 12/26/18 11:51 12/26/18 17:16 12/26/18 20:39 12/27/18 05:55 Bedside Glucose 126 104 123 White Blood Count 8.1 Red Blood Count 3.15 L Hemoglobin 8.8 L Hematocrit 29.0 L Mean Corpuscular 92.1 Volume Mean Corpuscular 27.9 L Hemoglobin Mean Corpuscular 30.3 L Hemoglobin Concent Red Cell 14.3 Distribution Width Platelet Count 443 H Mean Platelet Volume 10.7 H Immature 1.600 H Granulocytes % Neutrophils % 48.3 Lymphocytes % 31.0 Monocytes % 6.9 Eosinophils % 11.6 H Basophils % 0.6 Nucleated Red Blood 0.0 Cells % Immature 0.130 H Granulocytes # Neutrophils # 3.9 Lymphocytes # 2.5 Monocytes # 0.6 Eosinophils # 0.9 H Basophils # 0.1 Nucleated Red Blood 0.0 Cells # Sodium Level 141 Potassium Level 3.5 Chloride Level 105 Carbon Dioxide Level 23 Anion Gap 13 Blood Urea Nitrogen 6 L Creatinine 0.20 L Est Glomerular > 60 Filtrat Rate mL/min Glucose Level 111 Calcium Level 9.5 Phosphorus Level 4.3 Magnesium Level 2.1 Test 12/27/18 08:19 Bedside Glucose 139 Medications Current Medications IV Flush (NS 3 ml) 3 ml PER PROTOCOL IV ; Start 12/24/18 at 14:30 Ondansetron HCl (Zofran Inj) 4 mg Q6H PRN IV NAUSEA/VOMITING; Start 12/24/18 at 14:30 Heparin Sodium (Porcine) (Heparin (5000 Units/1ml)) 5,000 unit Q12 SC Last administered on 12/27/18 09:29; Admin Dose 5,000 UNIT; Start 12/24/18 at 21:00 Baclofen (Lioresal) 10 mg Q8H PRN GTB MUSCLE SPASMS; Start 12/24/18 at 15:30 Insulin Glargine (Lantus) 20 units DAILY SC Last administered on 12/27/18 08:28; Admin Dose 20 UNITS; Start 12/25/18 at 09:00 Levalbuterol (Xopenex Neb) 0.31 mg Q6H RESP THERAPY PRN NEB wheezing; Start 12/24/18 at 15:30 Levetiracetam (Keppra Liquid) 750 mg BID GTB Last administered on 12/27/18 09:27; Admin Dose 750 MG; Start 12/24/18 at 21:00 Magnesium Hydroxide (Milk Of Mag) 15 ml DAILY PO Last administered on 12/27/18 09:27; Admin Dose 15 ML; Start 12/25/18 at 09:00 Metoprolol Tartrate (Lopressor) 25 mg BID GTB Last administered on 12/27/18 09:27; Admin Dose 25 MG; Start 12/24/18 at 21:00 Montelukast Sodium (Singulair) 10 mg QHS GTB Last administered on 12/26/18 21:40; Admin Dose 10 MG; Start 12/24/18 at 21:00 Polyethylene Glycol (Miralax) 8.5 gm DAILY GTB Last administered on 12/27/18 09:27; Admin Dose 8.5 GM; Start 12/25/18 at 09:00 Simethicone (Mylicon Oral Drop) 80 mg TID PRN PO DISTENSION/GAS/BLOATING; Start 12/24/18 at 15:30 Spironolactone (Aldactone) 25 mg BID DIURETICS GTB Last administered on 12/27/18at 06:20; Admin Dose 25 MG; Start 12/24/18 at 18:00 Topiramate (Topamax Sprinkle) 50 mg BID GTB Last administered on 12/27/18at 09:27; Admin Dose 50 MG; Start 12/24/18 at 21:00 Diagnostic Test (Pha) (Accu-Chek) 1 ea 02 XX ; Start 12/25/18 at 02:00 Insulin Aspart (Novolog Insulin Pen) NOVOLOG *MODERATE* ALGORITHM WITH MEALS BEDTIME SC ; Start 12/24/18 at 18:00 Miscellaneous Information 1 ea NOTE XX ; Start 12/24/18 at 16:00 Glucose (Glutose) 15 gm Q15M PRN PO DECREASED GLUCOSE; Start 12/24/18 at 16:00 Glucose (Glutose) 22.5 gm Q15M PRN PO DECREASED GLUCOSE; Start 12/24/18 at 16:00 Dextrose (D50w Syringe) 25 ml Q15M PRN IV DECREASED GLUCOSE; Start 12/24/18 at 16:00 Dextrose (D50w Syringe) 50 ml Q15M PRN IV DECREASED GLUCOSE; Start 12/24/18 at 16:00 Glucagon (Glucagen) 1 mg Q15M PRN IM DECREASED GLUCOSE; Start 12/24/18 at 16:00 Glucose (Glutose) 15 gm Q15M PRN BUCCAL DECREASED GLUCOSE; Start 12/24/18 at 16:00 Citric Acid/ Sodium Citrate (Bicitra) 30 ml DAILY GTB Last administered on 12/27/18at 09:26; Admin Dose 30 ML; Start 12/25/18 at 09:00 Sodium Chloride 1,000 ml @ 75 mls/hr [id number] IV Last administered on 12/26/18at 22:03; Admin Dose 75 MLS/HR; Start 12/25/18 at 09:00 Acetaminophen (Tylenol Liquid) 650 mg Q4H PRN PO MILD PAIN(1-3)OR ELEVATED TEMP; Start 12/25/18 at 17:30 Famotidine (Pepcid Iv) 20 mg BID IV Last administered on 12/27/18at 09:27; Admin Dose 20 MG; Start 12/26/18 at 21:00 Meropenem/Sodium Chloride 50 ml @ 100 mls/hr Q8 IVPB Last administered on 12/27/18at 06:20; Admin Dose 100 MLS/HR; Start 12/26/18 at 20:00 Assessment/Plan Hospital Course (Demo Recall) IMP: 1. Sepsis--2/2 UTI + HCAP. Clinically improved 2. Vent Dependent Resp Failure 3. Cerebral Palsy RECS: 1. IVFs 2. Hadley-culture--follow up and de-escalate abx 3. Broad spectrum abx 4. Vent support 5. TF/Free H20 Agree with discharge planning [facility] LAY [facility] Dec 27, 2018 11:38
[2018-12-27] MEDS: SOD CHLORIDE 0.45% 1,000 ML IV SCH (14:20)
[2018-12-27] MEDS ORDERED: FAMOTIDINE 20 MG TAB PO SCH (21:00)
== END 2018-12-27 16:59 | DRG 872 ==
LOC: E/R 06:53 → 6WM 11:32
PROVIDERS: ADMIT Internal Medicine; ATTEND Hospitalist
PROC: 5A1945Z Respiratory Ventilation, 24-96 Consecutive Hours (ICD-10-PCS; principal; 2018-12-24)
DX: A41.9 Sepsis, unspecified organism (principal); N39.0 Urinary tract infection, site not specified; J96.10 Chronic respiratory failure, unspecified whether with hypoxia or hypercapnia; B96.4 Proteus (mirabilis) (morganii) as the cause of diseases classified elsewhere; G80.9 Cerebral palsy, unspecified; Z93.0 Tracheostomy status; B96.20 Unspecified Escherichia coli [E. coli] as the cause of diseases classified elsewhere; L89.611 Pressure ulcer of right heel, stage 1; R65.20 Severe sepsis without septic shock
CPT/HCPCS: 36415; 36600; 71045; 80048; 80053; 80170; 80202; 81001; 82803; 82962; 83036; 83605; 83735; 84100; 84443; 85025; 86756; 87040; 87070; 87081; 87086; 90686; 93005; 94002; 94003; 96374; 96375; J0692; J1580; J1644; J1815; J2185; J3370; J3480; J7030; J7040